=== PATIENT | female | born 1990 | race Caucasian/White ===

== ENCOUNTER 2018-05-09 09:02 | Emergency (ER) | payer MEDICAID, SELFPAY ==
[2018-05-09 09:05] VITALS: PULSE 90; RESP 16; TEMP 36.4; O2SAT 99
[2018-05-09 09:11] VITALS: BP 102/67
[2018-05-09 10:03] VITALS: PULSE 90; RESP 18; TEMP 36.4; O2SAT 96
--- NOTE | 2018-05-09 10:34 | ED.GENADUL_ITS ---
Discharge Plan Disposition Patient Disposition: HOME Condition: Stable Discharge Details Chief Complaint: RespSymp Clinical Impression: Influenza Primary Care Provider: Angel Lyman ED Provider: Ozzie Hernandez Home Meds and New Rx's Prescriptions: New benzonatate 200 mg capsule 200 mg PO TID PRN (Reason: cough) Qty: 30 RF: 0 oseltamivir [Tamiflu] 75 mg capsule 75 mg PO BID 5 Days Qty: 10 RF: 0 Continued medroxyprogesterone [Depo-Provera] 150 mg/mL syringe 150 mg IM .q 10wks Qty: 1 RF: 3 hydroxychloroquine [Plaquenil] 200 MG tablet 200 mg PO DAILY RF: 0 Midol Complete 1 EACH tablet 1 ea PO DAILY RF: 0 Discharge Instructions Instructions: Influenza (ED) Additional Instructions: Continue to stay well-hydrated and get plenty of rest during illness. You may use [id number] acetaminophen or Motrin as needed for body aches/fever chills. Otherwise take Tamiflu as prescribed and until fully completed and return immediately to the emergency department for any new or significant wor sening of symptoms. Follow-up with your primary care provider if not improving over the next week. Stand Alone Forms: Work Release Referrals: Angel Lyman [Primary Care Provider] - (As needed for reassessment) Medical Decision Making Patient presenting to the emergency department for chief complaint of flulike illness. Patient states that she has been around other family members that have recently been diagnosed with the flu. She states that symptoms started 48 hours ago and patient had significant fever and chills which she treated with Tylenol. Patient is now presenting to the emergency department for evaluation. she has not had any medications today. Patient has stable vital signs and is afebrile and otherwise vital signs within normal limits, nontoxic in appearance but patient does appear ill.. Physical exam is consistent with flu like illness. Patient has no signs of meningitis, clear lung sounds, and otherwise benign exam. Mother does have history of lupus and is on Plaquenil so given this I did discuss with mother recommendation for treatment with Tamiflu given that she has had symptoms for 48 hours or less. At this time we deferred testing given recent exposure to positive family members with similar symptoms. She was also prescribed Tessalon Perles for cough suppressant. She was encouraged to return for any new or significant worsening of symptoms otherwise to follow-up with primary care if not showing signs of improvement after a week of illness. After discussion of diagnosis and plan of care she has no further needs, questions, or concerns and states clear understanding to return to the emergency department for any worsening symptoms. HPI General Mode of arrival: ambulatory . Date/Time Provider Initiated Documentation: 05/09/18 10:01 . Limitations to Documentation: no limitations . Information obtained by: patient and RN notes reviewed . History of Present Illness 27 year old F presents to the emergency department with the chief complaint of Flu like illness, described as moderate, with intensity rated at 10. Quality is described as aching (Generalized body), Patient reports no radiation. Patient started experiencing this day(s) (2) and it has been constant. No relieving factors improve symptom(s), No exacerbating factors reported . Patient did receive the following treatments prior to arrival, none Related Data Home Medications Medication Instructions Recorded Confirmed hydroxychloroquine [Plaquenil] 200 mg PO DAILY tab-cap 08/04/16 05/09/18 Midol Complete 1 ea PO DAILY 05/22/17 05/09/18 medroxyprogesterone 150 mg/mL 150 mg IM .q 10wks #1 vial 03/08/18 05/09/18 intramuscular syringe benzonatate 200 mg PO TID PRN #30 cap 05/09/18 oseltamivir [Tamiflu] 75 mg PO BID 5 Days #10 [facility] 05/09/18 Previous Rx's Medication Instructions Recorded medroxyprogesterone 150 mg/mL 150 mg IM .q 10wks #1 vial 03/08/18 intramuscular syringe benzonatate 200 mg PO TID PRN #30 cap 05/09/18 oseltamivir [Tamiflu] 75 mg PO BID 5 Days #10 [facility] 05/09/18 Allergies Allergy/AdvReac Type Severity Reaction Status Date / Time Clear Adhesive Bandage AdvReac Intermediate Itchy skin Uncoded 05/09/18 09:11 - rash - feels like a burn General Stated Complaint: RespSymp MING: 4 Review of Systems Constitutional Reports body ache(s), Reports chills, Reports fever(s), Reports headache(s) and Reports malaise Eyes Denies eye discharge ENT Denies otalgia, Reports headache(s), Reports nasal congestion, Reports nasal discharge, Denies neck pain, Reports sinus pressure and Denies throat swelling Cardiovascular Denies chest pain and Denies dyspnea Respiratory Reports chest congestion, Reports cough, Reports pain with cough and Denies dyspnea Gastrointestinal Denies abdominal pain, Denies diarrhea, Denies nausea and Denies vomiting Musculoskeletal Denies joint swelling and Denies neck pain Integumentary/Breasts Denies rash Neurologic Reports headache(s) Allergic/Immunologic Denies throat swelling [facility] Medical History Lupus (Chronic) History of varicella Migraine with aura On Depo-Provera for contraception Pelvic pain Surgical History section Tonsillectomy and adenoidectomy Social History Smoking/Tobacco Use Status: Former Tobacco Use Exam Const General: cooperative, comfortable, no acute distress and ill appearing acutely (mild, non toxic) Nutritional Appearance: average body habitus Orientation: alert and awake [facility] Head: normal to inspection and normocephalic Ears: hearing grossly normal bilaterally, external ears normal and TM's normal bilaterally General nose exam: external nose normal, nares normal and no nasal discharge Face and sinus: normal facial exam and no erythema Mouth: oral mucosae normal, lip normal, tongue normal, no drooling, no muffled voice and no trismus Throat: posterior oropharynx normal, tonsils normal and uvula midline Neck Neck: normal visual inspection, full ROM, no lymphadenopathy, no meningeal signs, trachea midline and supple Resp Effort & Inspection: normal respiratory effort, able to speak in complete sentences and cough Quality of cough: dry Auscultation: clear to auscultation bilaterally Cardio Rate: regular rate Rhythm: regular rhythm Heart Sounds: S1 normal, S2 normal, normal S1 and S2, no click, no gallops, no murmurs and no rubs Skin General skin exam: no rashes or lesions noted and dry skin (warm) Neuro General: alert, awake, oriented x3, gait normal and moves all extremities Cognition: normal cognition Speech: speech normal Course Vital Signs Temperature 36.4 C L 05/09/18 09:05 Pulse 90 05/09/18 09:05 Respiratory Rate 16 05/09/18 09:05 Pulse Oximetry 99 05/09/18 09:05 Temperature 36.4 C L 05/09/18 10:03 Temperature Source Skin 05/09/18 10:03 Pulse 90 05/09/18 10:03 Respiratory Rate 18 05/09/18 10:03 Respiratory Effort 05/09/18 09:15 Blood Pressure 102/67 05/09/18 09:11 Pulse Oximetry 96 05/09/18 10:03 Oxygen Delivery Method Room Air 05/09/18 10:03 Oxygen Flow Rate 0 05/09/18 10:03 Pain Level 10 05/09/18 10:03
--- NOTE | 2018-05-09 10:44 | NUR.NOTE ---
patient and mother received discharge and follow up instruction per MD order Nursing Note:
== END 2018-05-09 11:29 | disposition home or self-care (01) ==
PROVIDERS: Emergency Provider Nurse Practitioner Family; PCP Family Medicine
DX: J11.1 Influenza due to unidentified influenza virus with other respiratory manifestations (principal)
CPT/HCPCS: 99283

== ENCOUNTER 2018-06-13 12:44 | Emergency (ER) | payer MEDICAID, SELFPAY ==
[2018-06-13 12:47] VITALS: BP 117/67; PULSE 94; RESP 16; TEMP 36.6; O2SAT 99
--- NOTE | 2018-06-13 13:05 | ED.GENADUL_ITS ---
Discharge Plan Disposition Patient Disposition: HOME Condition: Stable Discharge Details Chief Complaint: RespSymp Clinical Impression: URI (upper respiratory infection) Primary Care Provider: Angel Lyman ED Provider: Ozzie Hernandez Home Meds and New Rx's Prescriptions: New benzonatate 200 mg capsule 200 mg PO TID PRN (Reason: cough) Qty: 30 RF: 0 Continued medroxyprogesterone [Depo-Provera] 150 mg/mL syringe 150 mg IM .q 10wks Qty: 1 RF: 3 hydroxychloroquine [Plaquenil] 200 MG tablet 200 mg PO DAILY RF: 0 Midol Complete 1 EACH tablet 1 ea PO DAILY RF: 0 Discharge Instructions Instructions: Upper Respiratory Infection (ED) Additional Instructions: During illness please stay well-hydrated and get plenty of rest. Take medication as prescribed and you may also use [id number] appropriate cough and cold medication. Feel free to return for any new or significant worsening symptoms otherwise follow-up with your primary care provider for reassessment if not improving over the next week. Stand Alone Forms: Work Release Referrals: Angel Lyman [Primary Care Provider] - (as needed for reassessment) Medical Decision Making Patient presenting the emergency department for chief complaint of cough, nasal congestion, and headache. Patient states that she started last night with a mild cough but cough has progressed to dry and harsh causing headache, protests of emesis, and sinus pressure. She does state mild sore throat associated with this. She denies any fever, nuchal rigidity, rash or other symptoms. Physical exam shows significant nasal congestion, posterior oropharynx erythema but no exudates, no lymphadenopathy, no meningeal signs, clear lung sounds. Concern for upper respiratory tract infection which may include influenza. Plan to check influenza otherwise patient is stable, non-hypoxic, not tachycardic, and afebrile at this time. At this time doubt pneumonia, meningitis, retropharyngeal or peritonsillar abscess. Reviewed results of influenza which is negative at this time. Patient prescribed Tessalon Perles, and recommended [id number] cough and cold medications and to return for new or significant worsening symptoms or see [facility] provider if not improving. After discussion of diagnosis and plan of care patient is no further needs, questions, or concerns and states clear understanding to return to the emergency department for any worsening symptoms. HPI General Mode of arrival: ambulatory . Date/Time Provider Initiated Documentation: 06/13/18 13:02 . Limitations to Documentation: no limitations . Information obtained by: patient . History of Present Illness 27 year old F presents to the emergency department with the chief complaint of cold symptoms, described as mild and moderate, with intensity rated at 8. Quality is described as aching, and is localized to the head. Patient started experiencing this day(s) (1) and it has been constant. No relieving factors improve symptom(s), No exacerbating factors reported . Patient did receive the following treatments prior to arrival, none Related Data Home Medications Medication Instructions Recorded Confirmed hydroxychloroquine [Plaquenil] 200 mg PO DAILY tab-cap 08/04/16 06/13/18 Midol Complete 1 ea PO DAILY 05/22/17 06/13/18 medroxyprogesterone 150 mg/mL 150 mg IM .q 10wks #1 vial 03/08/18 06/13/18 intramuscular syringe benzonatate 200 mg PO TID PRN #30 cap 06/13/18 Previous Rx's Medication Instructions Recorded medroxyprogesterone 150 mg/mL 150 mg IM .q 10wks #1 vial 03/08/18 intramuscular syringe benzonatate 200 mg PO TID PRN #30 cap 06/13/18 Allergies Allergy/AdvReac Type Severity Reaction Status Date / Time Clear Adhesive Bandage AdvReac Intermediate Itchy skin Uncoded 05/17/18 15:37 - rash - feels like a burn General Stated Complaint: RespSymp MING: 3 Review of Systems Constitutional Reports body ache(s), Reports chills, Reports fever(s), Reports headache(s) and Reports malaise Eyes Denies eye discharge ENT Reports as per HPI, Denies ear discharge, Denies otalgia, Reports headache(s), Reports nasal congestion, Reports nasal discharge, Denies neck pain, Reports sinus pain, Reports sinus pressure, Reports sore throat and Denies throat swelling Cardiovascular Denies chest pain and Denies dyspnea Respiratory Reports cough and Denies dyspnea Gastrointestinal Reports vomiting (after coughing ) Musculoskeletal Denies joint swelling and Denies neck pain Integumentary/Breasts Denies rash Neurologic Reports headache(s) Allergic/Immunologic Denies throat swelling [facility] Medical History Migraine with aura (Chronic) On Depo-Provera for contraception (Acute) Contraception (Acute 06/14/15) Lupus (Chronic) History of varicella (Resolved) Pelvic pain (Resolved) Surgical History section Tonsillectomy and adenoidectomy Social History Smoking/Tobacco Use Status: Former Tobacco Use Exam Const General: cooperative, comfortable and no acute distress Orientation: alert and awake [facility] Head: normal to inspection, normocephalic and atraumatic Ears: hearing grossly normal bilaterally and TM's normal bilaterally General nose exam: external nose normal Face and sinus: normal facial exam, sinuses nontender and no erythema Mouth: oral mucosae normal, lip normal, tongue normal, no drooling, no muffled voice and no trismus Throat: tonsils normal, uvula midline and posterior oropharynx abnormal erythema (mild) Neck Neck: normal visual inspection, full ROM, no lymphadenopathy, no meningeal signs, trachea midline and supple Resp Effort & Inspection: normal respiratory effort, able to speak in complete sentences and cough Quality of cough: dry Auscultation: clear to auscultation bilaterally Cardio Rate: regular rate Rhythm: regular rhythm Heart Sounds: S1 normal, S2 normal, normal S1 and S2, no click, no gallops, no murmurs and no rubs Skin General skin exam: no rashes or lesions noted and dry skin (warm) Neuro General: alert, awake, oriented x3, gait normal and moves all extremities Cognition: normal cognition Speech: speech normal Course Vital Signs Temperature 36.6 C 06/13/18 12:47 Pulse 94 H 06/13/18 12:47 Respiratory Rate 16 06/13/18 12:47 Blood Pressure 117/67 06/13/18 12:47 Pulse Oximetry 99 06/13/18 12:47 Temperature 36.6 C 06/13/18 12:47 Temperature Source Skin 06/13/18 12:47 Pulse 94 H 06/13/18 12:47 Respiratory Rate 16 06/13/18 12:47 Respiratory Effort Non-Labored 06/13/18 12:52 Respiratory Depth Normal 06/13/18 12:52 Blood Pressure 117/67 06/13/18 12:47 Blood Pressure Position Sitting 06/13/18 12:47 Pulse Oximetry 99 06/13/18 12:47 Oxygen Delivery Method Room Air 06/13/18 12:47 Oxygen Flow Rate 0 06/13/18 12:47
== END 2018-06-13 13:55 | disposition home or self-care (01) ==
PROVIDERS: Emergency Provider Nurse Practitioner Family; PCP Family Medicine
DX: J06.9 Acute upper respiratory infection, unspecified (principal); Z87.891 Personal history of nicotine dependence
CPT/HCPCS: 87449; 99283

== ENCOUNTER 2018-06-17 16:09 | Outpatient (REF) | payer MEDICAID, SELFPAY ==
--- NOTE | 2018-06-17 16:00 | PAPFT_PTH ---
PATIENT: Kaylyn Gibson LOC: [facility] U#:[id number] AGE/SX: 27/F ROOM: RE06/17/[address]: PRACHI Almeida : 1990 BED: DIS: 06/17/2018 SPEC #: [id number] RECD: 06/17/18 18:16 STATUS: ADRIAN MUÑOZ #: [id number] ROBERT: 06/17/18 16:[address]: Daja Mcnamara DEPT: [facility] Cytology RECD BY: Loida Miranda ENTERED: 06/17/18 18:16 SP TYPE: PAPFT OTHR DR: Angel Lyman Tissues: 1 - CX/ENDOCX FOR PAP SMEARS Procedures: PAP THIN PREP/[facility] Screening Comments: [id number]
== END 2018-06-17 16:29 ==
LOC: LBN 16:09
PROVIDERS: PCP Family Medicine; Visit Provider Nurse Practitioner Family
DX: Z12.4 Encounter for screening for malignant neoplasm of cervix (principal)
CPT/HCPCS: 88142

== ENCOUNTER 2019-02-11 00:47 | Outpatient (CLI) | payer MEDICAID, SELFPAY ==
--- NOTE | 2019-02-11 14:22 | DI.US_ITS ---
APPROVED REPORT EXAM: Comprehensive 2D, Doppler, and color-flow Echocardiogram Indications: syncope, R55. systemic lupus erythematosus M32.9 28 yo. female with syncopal episodes, EKG with low voltage. assess for pericardial effusion or other abnormality Left Ventricle The left ventricle is normal size. The left ventricular systolic function is normal. The left ventric ular ejection fraction is within the normal range. There is normal left ventricular wall thickness. T here is normal LV segmental wall motion. The left ventricular diastolic function is normal. The Left Ventricular Ejection Fraction is 60-65% Right Ventricle The right ventricle is normal size. The right ventricular systolic function is normal. Atria The left atrium size is normal. The right atrium size is normal. Aortic Valve The aortic valve is normal in structure. There is no aortic valvular stenosis. No aortic regurgitatio n is present. Mitral Valve The mitral valve is normal in structure. Trace to mild mitral regurgitation. Tricuspid Valve The tricuspid valve is normal in structure. Mild tricuspid regurgitation. Pulmonic Valve The pulmonary valve is normal in structure. Trace to mild pulmonic regurgitation. Great Vessels JulyThe aortic root is normal in size. IVC is normal in size and collapses >50% with inspiration. Pericardium There is no pericardial effusion. 2D Dimensions IVSd 1.0 cm F: 0.6-1.0 LA Volume Index A2C 17.0 mL/m2 PWd 0.9 cm F: 0.6 - 1.0 LA Volume Index A4C 23.0 mL/m2 LVDd 4.9 cm F: 3.9 - 5.3 LVDs 3.2 cm F: 2.2 - 3.5 Aortic Root 2.9 cm F: 2.7 - 3.3 Left Atrium 2.7 cm F: 2.7 - 3.8 LVOT 2.0 cm (M/F) 1.5-2.5 LVEF (Oneil's) 57.6 % F: 54 - 74 LV Volume 87.3 mL F: 46 - 106 LV Volume Index 53.5 mL/m2 F: 29 - 61 FS 34.0 % LV Diastology E/A Ratio 1.8 MED E' 0.1 (<0.07 m/s) LV E/e MED 7.1 (>14) LAT E' 0.2 (<0.1 m/s) LV E/e LAT 5.3 (>14) Aortic Valve LVOT Peak Desean. 1.0 m/s LVOT Peak Gr. 4.4 mmHg LVOT Mean Gr. 2.7 mmHg LVOT VTI 0.2 m AO VTI 0.3 (0.18-0.25 m) JOLIE (VTI) 1.6 (2.5-4.5 cm2) Mitral Valve MV E Max Desean. 0.9 (0.4-1.3 m/s) MV A Velocity 0.5 (0.4-1.3 m/s) E/A Ratio 2.1 MV Decel. Time 172.2 (160-240 msec) MV PHT 49.9 msec MVA PHT 4.4 cm2 Tricuspid Valve TR P. Velocity 2.5 m/s TR P. Gradient 24.4 mmHg Conclusion The Left Ventricular Ejection Fraction is 60-65%, without wall motion abnormalities The left ventricular diastolic function is normal. The right ventricle shows normal size and function. Both atria are normal size The aortic valve is normal in structure without stenosis. The mitral valve is normal in structure with trace regurgitation The tricuspid valve is normal in structure with mild regurgitation The aortic root is normal in size. There is no pericardial effusion. This represents a normal echocardiogram
== END 2019-02-11 01:07 ==
PROVIDERS: PCP Family Medicine; Visit Provider Family Medicine
DX: R55 Syncope and collapse (principal); M32.9 Systemic lupus erythematosus, unspecified; I34.0 Nonrheumatic mitral (valve) insufficiency
CPT/HCPCS: 93306

== ENCOUNTER 2019-03-07 00:39 | Outpatient (CLI) | payer MEDICAID, SELFPAY ==
--- NOTE | 2019-03-07 15:20 | DI.MRI_ITS ---
EXAM: MR BRAIN WO CLINICAL HISTORY: RECURRENT SYNCOPAL EPISODES WITH ? SEIZURE, R55 SYNCOPE AND COLLAPSE, G25.9, UNSPE CIFIED EXTRAPYRAMIDAL AND MOVEMENT DISORDER, H53.9, VISUAL DISTURBANCE. TECHNIQUE: Multiplanar multisequence MRI was performed. MR examination of brain was performed accor ding to the usual protocol. COMPARISON: No exams were available for comparison FINDINGS: Ventricular system is normal in appearance. The orbital and temporal bone structures appear intact. Diffusion-weighted imaging within normal limits. Susceptibility weighted imaging within normal limi ts. There is normal flow in the tetlin of [place] vasculature. There is questionable faint focus of abnormal signal seen on T2 weighted and FLAIR imaging, which pro bably lies in the external capsule on the left. This is a nonspecific finding. However, given the h istory of seizures, additional evaluation with contrast-enhanced MRI and additional coronal imaging i s suggested to rule out inflammatory, neoplastic, or demyelinating process.
== END 2019-03-07 00:59 ==
PROVIDERS: PCP Family Medicine; Visit Provider Nurse Practitioner Adult Health
DX: R55 Syncope and collapse (principal); G25.9 Extrapyramidal and movement disorder, unspecified; H53.9 Unspecified visual disturbance; Z86.69 Personal history of other diseases of the nervous system and sense organs
CPT/HCPCS: 70551

== ENCOUNTER 2019-03-20 03:02 | Outpatient (CLI) | payer MEDICAID, SELFPAY ==
[2019-03-20] MEDS: Normal Saline Flush 10 ML SYR IVP (13:42)
[2019-03-20] MEDS: Gadoterate meglumine 20 ML VIAL 11 ML IVP (13:43)
--- NOTE | 2019-03-20 14:00 | DI.MRI_ITS ---
EXAM: MR BRAIN W CLINICAL HISTORY: abnormal brain MRI, R90.89, please do coronals. TECHNIQUE: Multiplanar multisequence MRI was performed. COMPARISON: MR BRAIN WO from 03/07/2019 FINDINGS: Today's examination was obtained to evaluate questionable focal area of abnormal signal seen on T2 we ighted and FLAIR imaging on recent MRI of March 07, 2019 on the left. This is again seen on today' s examination and is confirmed to lie in the deep white matter adjacent to the insular cortex on the left just above the extreme capsule. No other signal abnormality identified in the brain. Post cont rast imaging shows no evidence of enhancement. Very subtle area of decreased signal noted on the T1 post contrast images. This was probably present on the initial scan as well. No other enhancing les ion seen in the brain. IMPRESSION: Nonspecific T2 high-signal focus in deep white matter adjacent to insular cortex on the left. No alexi dence of enhancement at this site or elsewhere in the brain. The findings may represent an old insul t. Possibility of very early demyelinating or inflammatory process not excluded. Follow-up brain MR I recommended in 6 months.
== END 2019-03-20 03:22 ==
PROVIDERS: PCP Family Medicine; Visit Provider Nurse Practitioner Adult Health
DX: R90.82 White matter disease, unspecified (principal); R94.02 Abnormal brain scan
CPT/HCPCS: 70552

== ENCOUNTER 2019-05-05 16:42 | Outpatient (REF) | payer MEDICAID, SELFPAY ==
[2019-05-05 19:29] LABS: C-Reactive Protein 0.05 mg/dL (0.0-0.3); TSH (W/Ref FT4) 0.87 uIU/mL (0.36-3.74)
== END 2019-05-05 17:02 ==
LOC: NCHCN 16:42
PROVIDERS: PCP Family Medicine; Visit Provider Family Medicine
DX: R94.6 Abnormal results of thyroid function studies (principal); M32.9 Systemic lupus erythematosus, unspecified
CPT/HCPCS: 84443; 86140

== ENCOUNTER 2019-07-10 09:08 | Emergency (ER) | payer MEDICAID, SELFPAY ==
[2019-07-10 09:16] VITALS: BP 110/56; PULSE 86; RESP 16; TEMP 36.8; O2SAT 99
--- NOTE | 2019-07-10 09:51 | ED.GENADUL_ITS ---
Discharge Plan Disposition Patient Disposition: HOME Condition: Stable Discharge Details Chief Complaint: RespSymp Clinical Impression: Pneumonia Primary Care Provider: Angel Lyman ED Provider: Willie Cabrales Home Meds and New Rx's Prescriptions: New doxycycline hyclate 100 mg capsule 100 mg PO BID 10 Days Qty: 20 RF: 0 Continued hydroxychloroquine [Plaquenil] 200 MG tablet 200 mg PO DAILY RF: 0 Midol Complete 1 EACH tablet 1 ea PO DAILY RF: 0 sertraline 100 mg tablet 200 mg PO DAILY RF: 0 Nexplanon 68 mg Implant 1 SUBDERMAL RF: 0 Discharge Instructions Instructions: Pneumonia (ED) Additional Instructions: Doxycycline as directed. [id number] medications as directed for symptomatic control. Please watch for new or worsening symptoms and return to the ER for any concerns. Stand Alone Forms: Work Release Medical Decision Making Patient presents with a febrile illness since Sunday, afebrile now. Lungs are clear to auscultation, she appears well, nontoxic. Will obtain chest x-ray to rule out pneumonia, rapid strep to rule out strep pharyngitis. Likely viral syndrome. Very well could have been a false negative flu swab on Sunday. Rapid strep negative. X-ray reveals left lower lobe pneumonia, will treat with doxycycline. Patient comfortable this plan. No additional questions or concerns Medical Records Medical records reviewed: Yes I reviewed the patient's medical records. Imaging Data Radiologic Study: Attestation: I personally reviewed and interpreted this imaging study as follows: Imaging: X-Ray (Left lower lobe infiltrate as read by me) Lab Data Lab results reviewed: Yes I reviewed the patient's lab results. Lab results narrative: 07/10/19 09:55 Tonsil - Not Specified Streptococcus Screen (OUMAR) - Pending Rapid strep negative, culture pending HPI General Mode of arrival: ambulatory . Date/Time Provider Initiated Documentation: 07/10/19 09:24 . Limitations to Documentation: no limitations . Information obtained by: patient . HPI Narrative: 28-year-old female history of lupus, migraines, presents with cough, slightly productive, fever, bilateral earache, sore throat, body aches that began on Sunday, worsened on Sunday. She was seen by her provider on Sunday, negative flu swab. She was instructed to use neb treatments and pufq-lll-[id number] medications. She reports that she really does not feel any better. She has vomited 1 time after a coughing episode but denies any other vomiting, abdominal pain, nausea. Does report general malaise. Denies any headache, chest pain, dysuria, diarrhea, skin rash. 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 Related Data Home Medications Medication Instructions Recorded Confirmed hydroxychloroquine [Plaquenil] 200 mg PO DAILY tab-cap 08/04/16 07/10/19 Midol Complete 1 ea PO DAILY 05/22/17 07/10/19 sertraline 100 mg tablet 200 mg PO DAILY tab 01/24/19 07/10/19 Nexplanon 1 SUBDERMAL 07/10/19 doxycycline hyclate 100 mg PO BID 10 Days #20 cap 07/10/19 Previous Rx's Medication Instructions Recorded doxycycline hyclate 100 mg PO BID 10 Days #20 cap 07/10/19 Allergies Allergy/AdvReac Type Severity Reaction Status Date / Time Clear Adhesive Bandage AdvReac Intermediate Itchy skin Uncoded 07/10/19 09:19 - rash - feels like a burn General Stated Complaint: RespSymp MING: 4 Review of Systems Constitutional Constitutional: Denies chills, Reports fatigue, Reports fever(s) and Reports headache(s) (History of migraines, no symptoms now) Eyes Eyes: Denies eye discharge ENT Ears, Nose, Mouth, and Throat: Reports headache(s) (History of migraines, no symptoms now), Reports hoarseness and Reports sore throat Cardiovascular Cardiovascular: Denies chest pain and Denies dyspnea Respiratory Respiratory: Reports cough and Denies dyspnea Gastrointestinal Gastrointestinal: Denies abdominal pain, Denies nausea and Reports vomiting Genitourinary Genitourinary: Denies dysuria Musculoskeletal Musculoskeletal: Reports myalgias Integumentary/Breasts Skin/Breast: Denies rash Neurologic Neurologic: Reports headache(s) (History of migraines, no symptoms now) Endocrine Endocrine: Reports fatigue [facility] Medical History Abnormal results of thyroid function studies (Acute) Acute stress reaction (Acute) BASSEM positive (Acute) Contraception (Acute 06/14/15) Depo Provera since 2015. CTS (carpal tunnel syndrome) (Acute) History of varicella (Resolved) 1994 Iron deficiency (Acute) Lupus (Chronic) Major depression (Acute) Migraine headache (Chronic) Migraine with aura (Chronic) On Depo-Provera for contraception (Acute) since RC/S 05/2015. Pain, eye, right (Acute) Panic disorder (Acute) Pelvic pain (Resolved) Nl CT of abd and pelvis. 2nd opinion at [facility] [place] Doctor Of Naturopathic Medicine Dept discouraged pt from having hysterectomy. Pelvic pain in female (Acute) Spina bifida occulta (Acute) Syncope (Chronic) Systemic lupus erythematosus (Chronic) Surgical History section 1. C/S 2. 05/31/15 elective repeat. F. [id number]. Tonsillectomy and adenoidectomy Social History Smoking/Tobacco Use Status: Current every day Tobacco Type: cigarettes Alcohol Intake: never Drug use: Never Do you feel safe in your relationship?: Yes Exam Const General: cooperative, healthy appearing, comfortable and no acute distress Orientation: alert and awake [facility] Head: normal to inspection, normocephalic and atraumatic Ears: external ears normal, TM's normal bilaterally and EAC's normal Mouth: moist mucous membranes Throat: posterior oropharynx normal Eyes Conjunctivae: conjunctivae normal Neck Neck: normal visual inspection, full ROM, trachea midline and supple Lymphatic: lymphadenopathy (Mild, anterior, posterior cervical, shotty) Resp Effort & Inspection: normal respiratory effort, able to speak in complete sentences and cough Quality of cough: dry (Mild) Auscultation: clear to auscultation bilaterally Cardio Rate: regular rate Rhythm: regular rhythm Skin General skin exam: no rashes or lesions noted Neuro General: alert, awake, moves all extremities and no focal motor deficits Sensory Exam: no sensory deficits noted Extrem General: normal to inspection Psych Appearance: grossly normal Mental Status: mental status grossly normal Course Vital Signs Vital signs: Vital Signs Temperature 36.8 C 07/10/19 09:16 Pulse 86 07/10/19 09:16 Respiratory Rate 16 07/10/19 09:16 Blood Pressure 110/56 L 07/10/19 09:16 Pulse Oximetry 99 07/10/19 09:16 Temperature 36.8 C 07/10/19 09:16 Temperature Source Skin 07/10/19 09:16 Pulse 86 07/10/19 09:16 Respiratory Rate 16 07/10/19 09:16 Respiratory Effort Non-Labored 07/10/19 09:26 Blood Pressure 110/56 L 07/10/19 09:16 Blood Pressure Position Sitting 07/10/19 09:16 Pulse Oximetry 99 07/10/19 09:16 Oxygen Delivery Method Room Air 07/10/19 09:16 Oxygen Flow Rate 0 07/10/19 09:16 Pain Level 9 07/10/19 09:16
--- NOTE | 2019-07-10 10:06 | DI.RAD_ITS ---
EXAM: XR CHEST 2V PA LATERAL INDICATION: cough/fever, neg flu. COMPARISON: No exams were available for comparison TECHNIQUE: 2D digital imaging was performed. FINDINGS: Cardiac and mediastinal contours have a normal appearance. There is a patchy infiltrate seen in the left lower lobe, above the diaphragm. There is also probable in infiltrate in the lingula. No eff usions are seen. The right appears clear. No pneumothorax or bony abnormality is seen. IMPRESSION: Left lower lobe and lingular infiltrates. DATA REPOSITORY: RADIATION DOSE DELIVERED:
[2019-07-10 10:43] VITALS: BP 99/55; PULSE 86; RESP 15; O2SAT 98
== END 2019-07-10 10:44 | disposition home or self-care (01) ==
PROVIDERS: Emergency Provider Physician Assistant; PCP Family Medicine
DX: R05 Cough (principal); R50.9 Fever, unspecified; J18.9 Pneumonia, unspecified organism; F17.210 Nicotine dependence, cigarettes, uncomplicated
CPT/HCPCS: 87880; 99283; 71046; 87081; 99284

== ENCOUNTER 2019-09-18 01:38 | Outpatient (CLI) | payer MEDICAID, SELFPAY ==
--- NOTE | 2019-09-18 08:30 | DI.MRI_ITS ---
EXAM: MR BRAIN WO/W CLINICAL HISTORY: 6 month monitoring for hx abnormal brain imaging. TECHNIQUE: Multiplanar multisequence MRI of the brain was performed. CONTRAST MATERIAL: IV Contrast: ML of Dotarem contrast administered. COMPARISON: MR MR BRAIN WO from 03/07/2019 MR MR BRAIN W from 03/20/2019 FINDINGS: VENTRICLES AND EXTRA AXIAL SPACES: Normal in size and morphology for the patient's age. HEMORRHAGE: None. CEREBRAL PARENCHYMA: There is normal zimmerman-white matter differentiation. There has been no change in the 5 millimeter high-signal focus in the white matter adjacent to the left insular cortex. Again th is shows no enhancement. No new lesions are identified. There is no restricted diffusion. No space -occupying lesion identified. MIDLINE SHIFT: None. BRAINSTEM/CEREBELLUM: Normal. CALVARIUM: Normal. ENHANCEMENT: No suspicious enhancement identified. VISUALIZED PARANASAL SINUSES/MASTOIDS: Clear. IMPRESSION: Stable small high signal focus in the white matter adjacent to the left insular cortex. The findings could be secondary to a remote vascular insult. No new abnormalities are seen.. DATA REPOSITORY:
[2019-09-18] MEDS: Normal Saline Flush 10 ML SYR IVP (14:35)
[2019-09-18] MEDS: Gadoterate meglumine 20 ML VIAL 12 ML IVP (14:36)
== END 2019-09-18 01:58 ==
PROVIDERS: PCP Family Medicine; Visit Provider Nurse Practitioner Adult Health
DX: R93.0 Abnormal findings on diagnostic imaging of skull and head, not elsewhere classified (principal); R90.82 White matter disease, unspecified
CPT/HCPCS: 70553

== ENCOUNTER 2019-11-27 13:35 | Outpatient (REF) | payer MEDICAID, SELFPAY ==
[2019-12-01 14:53] LABS: Chlamydia Result Negative (Negative); GC Result Negative (Negative)
== END 2019-11-27 13:55 ==
LOC: NCHCN 13:35
PROVIDERS: PCP Family Medicine; Visit Provider Family Medicine
DX: Z30.9 Encounter for contraceptive management, unspecified (principal); Z11.3 Encounter for screening for infections with a predominantly sexual mode of transmission
CPT/HCPCS: 87491; 87591

== ENCOUNTER 2020-04-27 20:44 | Outpatient (REF) | payer MEDICAID, SELFPAY ==
[2020-04-27 18:18] LABS: Abs Immature Grans 0.02 10^3/uL (0.0-0.06); Absolute Basophil Count 0.05 10^3/uL (0.0-0.2); Absolute Eosinophil Count 0.06 10^3/uL (0.0-0.7); Absolute Lymphocyte Count 2.33 10^3/uL (1.2-3.4); Absolute Monocyte Count 0.51 10^3/uL (0.1-0.8); Absolute Neutrophil Count 3.84 10^3/uL (1.2-6.7); Basophils % 0.7; Eosinophils % 0.9; HCT 36.3 % (36.0-46.0); HGB 12.1 g/dL (11.2-15.7); Immature Grans % 0.3; Lymphocytes % 34.2; MCH 32.5 pg (27.0-33.0); MCHC 33.3 % (32.0-36.0); MCV 97.6 fL (80-95); MPV 10.8 fL (8.0-11.0); Monocytes % 7.5; Neutrophils % 56.4; Nucleated RBC 0 %; Platelet Count 259 10^3/uL (130-400); RBC 3.72 10^6/uL (3.93-5.22); RDW 11.9 % (11.7-14.6); RDW-SD 42.5 fL; WBC 6.81 10^3/uL (4.4-10.8)
[2020-04-27 18:26] LABS: ALT 16 U/L (14-59); AST 15 U/L (15-37); Albumin 4.3 g/dL (3.4-5.0); Alkaline Phosphatase 73 U/L (46-116); Anion Gap 9.4 mmol/L (3-11); BUN 10 mg/dL (7-18); Bilirubin, Total 0.2 mg/dL (0.2-1.0); CO2 27.6 mmol/L (21.0-32.0); CREATININE 0.78 mg/dL (0.55-1.02); Calcium 9.1 mg/dL (8.5-10.1); Chloride 104 mmol/L (98-107); Glucose 105 mg/dL (74-106); Potassium 3.7 mmol/L (3.5-5.1); Sodium 141 mmol/L (136-145); Total Protein 6.9 g/dL (6.4-8.2)
== END 2020-04-27 21:04 ==
LOC: NCHCN 20:44
PROVIDERS: PCP Family Medicine; Visit Provider Family Medicine
DX: B35.1 Tinea unguium (principal)
CPT/HCPCS: 80053; 85025

== ENCOUNTER 2020-10-17 12:23 | Emergency (ER) | payer MEDICAID, SELFPAY ==
[2020-10-17 12:31] VITALS: BP 105/71; PULSE 92; RESP 20; TEMP 36.4; O2SAT 98
--- NOTE | 2020-10-17 12:42 | ED.GENADUL_ITS ---
Discharge Plan Disposition Patient Disposition: HOME Condition: Good Discharge Details Clinical Impression: Abrasion hand, Laceration of hand Primary Care Provider: Angel Lyman ED Provider: Jennifer Esparza Home Meds and New Rx's Prescriptions: Continued hydroxychloroquine [Plaquenil] 200 MG tablet 200 mg PO DAILY RF: 0 Midol Complete 1 EACH tablet 1 ea PO DAILY RF: 0 Mirena 20 mcg/24 hours (6 yrs) 52 mg Intrauterine Device 1 device INTRAUTERINE ONCE RF: 0 venlafaxine 75 mg capsule,extended release 24hr 225 mg PO DAILY RF: 0 Discharge Instructions Instructions: Laceration (ED) Additional Instructions: There is no evidence of fracture on your x-ray. There is no evidence that you have disrupted any ligaments. However, you have multiple abrasions and one laceration requiring suture closure. Please monitor wound for signs infection including redness, warmth, drainage, increased pain, fever/chills. If you develop these other new/worsening symptoms please seek care urgently once again. Otherwise, please return in 10 days for suture removal. Referrals: Angel Lyman [Primary Care Provider] - Discharge Data Discharge Date/Time-TO BE ENTERED AT DEPARTURE: 10/17/20 14:10 Medical Decision Making Patient is a pleasant 29-year-old [id number] female presenting today with chief complaint of right hand pain. She reports a prior to arrival she was in the bathroom when she tripped over a cord and fell putting her right hand through a glass window. Suffered multiple abrasions and one longer laceration. Denies any numbness or tingling. Denies other injury the time of the incident. Last tetanus was in 2014. On exam, patient appears nontoxic. Hemodynamically stable. Patient has multiple abrasions and a laceration that will require closure just proximal to the MCP joint of the fourth digit. She has good extension against resistance of all the digits. She is able to touch thumb and pinky. Axillary nerve function intact. No pain with palpation of the wrist. Plan to obtain imaging to evaluate for any possible bony abnormality. Will give Tylenol and ibuprofen to help with discomfort. UPT negative. XR reviewed by radiologist: FINDINGS: Four views were obtained. No fracture is seen. Discussed findinsg witht eh patient. She and I discussed risks/benefits of closure of her wound. She voices understanding and wishes to proceed. Please see procedure note. Patient tolerated this well. Wounds were all cleansed, explored to base in a bloodless field with no FB or debris noted. Deep structures intact. The small laceration radial to the one requiring suture closure was cleansed and closed with thin later of adhesive. We discussed care of the sutrues and adhesive at length. We discussed wound care in general. Dressing applied. Middle and ring finger ivon taped to help immobilize the lacerations. Return precautions discussed. She will return for suture removal in 10 days. All of her questions and concerns were addressed, she is in agreement with this plan. HPI General Mode of arrival: ambulatory . Date/Time Provider Initiated Documentation: 10/17/20 12:41 . Limitations to Documentation: no limitations . Information obtained by: patient and RN notes reviewed . History of Present Illness 29 year old F presents to the emergency department with the chief complaint of right hand injury, described as moderate, with intensity rated at 7. Quality is described as aching, and is localized to the right and upper extremity. Patient reports no radiation. Patient started experiencing this minute(s) and it has been constant. Immobilization improves symptom(s), Patient notes no other symptoms.. Patient did receive the following treatments prior to arrival, none Related Data Home Medications Medication Instructions Recorded Confirmed hydroxychloroquine [Plaquenil] 200 mg PO DAILY tab-cap 08/04/16 10/17/20 Midol Complete 1 ea PO DAILY 05/22/17 10/17/20 Mirena 1 device INTRAUTERINE ONCE 10/17/20 10/17/20 venlafaxine 225 mg PO DAILY 10/17/20 10/17/20 Allergies Allergy/AdvReac Type Severity Reaction Status Date / Time ibuprofen AdvReac Intermediate Nausea Unverified 10/17/20 12:53 Clear Adhesive Bandage AdvReac Intermediate Itchy skin Uncoded 07/10/19 09:19 - rash - feels like a burn General Stated Complaint: Laceration MING: 4 Review of Systems Constitutional Constitutional: Reports as per HPI, Denies chills, Denies fever(s), Denies headache(s) and Denies weakness ENT Ears, Nose, Mouth, and Throat: Denies headache(s) Cardiovascular Cardiovascular: Reports as per HPI Respiratory Respiratory: Reports as per HPI and Denies cough Musculoskeletal Musculoskeletal: Reports as per HPI and Denies tingling Integumentary/Breasts Skin/Breast: Reports as per HPI, Denies rash and Denies wounds Neurologic Neurologic: Reports as per HPI, Denies headache(s), Denies tingling, Denies paresthesias and Denies weakness [facility] Medical History (Updated 10/17/20 @ 13:52 by YOVANNY Burris) Abnormal results of thyroid function studies Acute stress reaction BASSEM positive Contraception (06/14/15) Depo Provera since 2015. CTS (carpal tunnel syndrome) History of varicella 1994 Iron deficiency Lupus Major depression Migraine headache Migraine with aura On Depo-Provera for contraception since RC/S 05/2015. Pain, eye, right Panic disorder Pelvic pain Nl CT of abd and pelvis. 2nd opinion at [facility] [place] [employer] Dept discouraged pt from having hysterectomy. Pelvic pain in female Spina bifida occulta Syncope Systemic lupus erythematosus Surgical History section 1. C/S 2. 05/31/15 elective repeat. F. [id number]. Tonsillectomy and adenoidectomy Social History Smoking/Tobacco Use Status: Current every day Tobacco Type: cigarettes Smoking risk assessment performed?: Yes Alcohol Intake: never Drug use: Never Substance use type: does not use Do you feel safe at home: Yes Do you feel safe in your relationship?: Yes Exam Const General: cooperative, healthy appearing, comfortable, no acute distress, well developed and well groomed Nutritional Appearance: average body habitus and well nourished Orientation: alert and awake Resp Effort & Inspection: normal respiratory effort, able to speak in complete sentences and no respiratory distress Cardio Rate: regular rate Rhythm: regular rhythm Skin Trauma: abrasion and laceration Neuro General: patient alert and patient awake Cognition: normal cognition Speech: speech normal Gait: normal gait Motor: muscle tone normal throughout Sensory Exam: no sensory deficits noted Extrem Hand/finger images: 1. 1.6cm laceration into subQ tissue. No deep structure involvement. Able to extend fingers against resistance. No surrounding erythema, warmth, drainage. Senstaion intact. Brisk capillary refill. 2. 5mm curvilinear laceration. Psych Appearance: grossly normal and well kempt Mental Status: mental status grossly normal Speech and Movement: speech and movement normal Course Vital Signs Vital signs: Vital Signs Temperature 36.4 C L 10/17/20 12:31 Pulse 92 H 10/17/20 12:31 Respiratory Rate 20 10/17/20 12:31 Blood Pressure 105/71 10/17/20 12:31 Pulse Oximetry 98 10/17/20 12:31 Temperature 36.4 C L 10/17/20 12:31 Temperature Source Skin 10/17/20 12:31 Pulse 92 H 10/17/20 12:31 Respiratory Rate 20 10/17/20 12:31 Respiratory Effort 10/17/20 12:40 Blood Pressure 105/71 10/17/20 12:31 Blood Pressure Position Sitting 10/17/20 12:31 Pulse Oximetry 98 10/17/20 12:31 Oxygen Delivery Method Room Air 10/17/20 12:31 Oxygen Flow Rate 0 10/17/20 12:31 Pain Level 9 10/17/20 12:41 Procedures Laceration Laceration 1: Site: hand Side (If applicable): right Size (cm): 1.5 Description: linear Depth: simple, single layer Local Anesthetic: Lidocaine 1% Amount of anesthesia used (mL): 3 Pre-repair: wound explored, irrigated extensively and deep structures intact Skin layer closed with: nylon Size (cm): 5-0 Number of sutures: 2 Technique: simple, interrupted
--- NOTE | 2020-10-17 12:45 | DI.RAD_ITS ---
Exam(s) XR HAND RT COMPLETE EXAM: XR HAND RT COMPLETE CLINICAL HISTORY: fell through window TECHNIQUE: COMPARISON: No exams were available for comparison FINDINGS: Four views were obtained. No fracture is seen. IMPRESSION: RADIATION DOSE DELIVERED: Total DLP
[2020-10-17] MEDS: Acetaminophen 325 MG TAB 650 MG PO (12:52)
[2020-10-17] MEDS: Lidocaine/Epinephri/Tetracaine Topical Gel 3 ML (13:20)
[2020-10-17] MEDS: Lidocaine 1% Multi-Dose 20 ML VIAL IJ (13:20)
== END 2020-10-17 14:10 | disposition home or self-care (01) ==
PROVIDERS: Emergency Provider Physician Assistant; PCP Family Medicine
DX: S61.411A Laceration without foreign body of right hand, initial encounter (principal); W25.XXXA Contact with sharp glass, initial encounter
CPT/HCPCS: 12001; 81025; 99281; 73130; J3490

== ENCOUNTER 2021-02-04 02:54 | Outpatient (CLI) | payer MEDICAID, SELFPAY ==
[2021-02-04 15:36] LABS: Abs Immature Grans 0.01 10^3/uL (0.0-0.06); Absolute Basophil Count 0.04 10^3/uL (0.0-0.2); Absolute Eosinophil Count 0.03 10^3/uL (0.0-0.7); Absolute Lymphocyte Count 1.73 10^3/uL (1.2-3.4); Absolute Monocyte Count 0.28 10^3/uL (0.1-0.8); Absolute Neutrophil Count 3.52 10^3/uL (1.2-6.7); Basophils % 0.7; Eosinophils % 0.5; HCT 33.2 % (36.0-46.0); Immature Grans % 0.2; Lymphocytes % 30.8; MCH 32.4 pg (27.0-33.0); MCHC 33.1 % (32.0-36.0); MCV 97.9 fL (80-95); MPV 9.7 fL (8.0-11.0); Neutrophils % 62.8; Nucleated RBC 0 %; Platelet Count 195 10^3/uL (130-400); RBC 3.39 10^6/uL (3.93-5.22); RDW 12.2 % (11.7-14.6); WBC 5.61 10^3/uL (4.4-10.8)
[2021-02-04 15:37] LABS: ESR < 1 mm/hr (0-20)
[2021-02-04 15:58] LABS: Bilirubin Negative (Negative); Blood Negative (Negative); Clarity Clear (Clear); Glucose Negative (Negative); Ketones Negative (Negative); Leukocyte Esterase Negative (Negative); Nitrite Negative (Negative); Urobilinogen 0.2 EU/dL (Up TO 0.2); pH 5.5 (5-8)
[2021-02-04 16:22] LABS: PROTEIN < 6.0 mg/dL
[2021-02-04 16:45] LABS: COMMENT (LAB VIEW ONLY) 54.42 mg/dL
[2021-02-04 17:20] LABS: ALT 18 U/L (14-59); AST 14 U/L (15-37); Albumin 4.4 g/dL (3.4-5.0); Alkaline Phosphatase 58 U/L (46-116); Anion Gap 8.7 mmol/L (3-11); BUN 6 mg/dL (7-18); Bilirubin, Total 0.4 mg/dL (0.2-1.0); C-Reactive Protein 0.08 mg/dL (0.0-0.3); CO2 27.3 mmol/L (21.0-32.0); CREATININE 0.8 mg/dL (0.55-1.02); Calcium 8.9 mg/dL (8.5-10.1); Chloride 101 mmol/L (98-107); Glucose 95 mg/dL (74-106); Potassium 3.8 mmol/L (3.5-5.1); Sodium 137 mmol/L (136-145); Total Protein 6.6 g/dL (6.4-8.2)
[2021-02-07 10:57] LABS: C3 Complement 75 mg/dL (81-157); C4 Complement 18 mg/dL (13-39)
[2021-02-08 10:11] LABS: dsDNA Ab, IgG <12.3 IU/mL (<30.0)
== END 2021-02-04 02:55 | disposition home or self-care (01) ==
LOC: LBO 02:54
PROVIDERS: PCP Family Medicine; Visit Provider Internal Medicine Rheumatology
DX: M32.19 Other organ or system involvement in systemic lupus erythematosus (principal); R76.8 Other specified abnormal immunological findings in serum; Z79.899 Other long term (current) drug therapy
CPT/HCPCS: 36415; 80053; 85652; 81003; 82565; 84156; 85025; 86140; 86160; 86225

== ENCOUNTER 2021-07-04 21:09 | Emergency (ER) | payer MEDICAID, SELFPAY ==
[2021-07-04 21:23] VITALS: BP 104/57; PULSE 74; RESP 16; TEMP 36.6; O2SAT 100
--- NOTE | 2021-07-04 22:22 | ED.GENADUL_ITS ---
Discharge Plan Disposition Patient Disposition: HOME Condition: Stable Discharge Details Clinical Impression: Chronic abdominal pain, Abdominal bloating Primary Care Provider: Angel Lyman ED Provider: Raquel Loja Home Meds and New Rx's Prescriptions: Continued hydroxychloroquine [Plaquenil] 200 MG tablet 200 mg PO DAILY 0RF Discharge Instructions Instructions: Chronic Abdominal Pain (ED) Additional Instructions: Your lab work is reassuring and shows no evidence of acute significant concerning findings. Drink plenty of fluids and get plenty of rest. Take Tylenol as needed and directed for pain. You can consider taking an [id number] Pepcid, Prevacid or Prilosec for your upper abdominal pain, abdominal fullness and bloating. Call [facility] tomorrow morning to schedule a follow-up appointment for reevaluation of your IUD. Return immediately to the emergency department if you develop any worsening or new concerning symptoms. Referrals: [facility] [place], [place] [Provider Group] Discharge Data Discharge Physician: Raquel Loja Medical Decision Making 30-year-old female with a history of lupus, migraine, gluten intolerance presents with 3 weeks of abdominal pain, bloating and sensation of fullness with a request for removal of her IUD. Her vitals are within normal limits. Patient is tearful and states she is frustrated regarding her symptoms. Labs and urinalysis obtained on arrival. Patient's abdomen is soft and minimally tender in the lower quadrants. She has no rigidity or guarding. Discussed with patient at length that we may not determine the cause of her symptoms, but can consider CT imaging, referral for pelvic ultrasound and repeat a pelvic exam. Patient states she would like to know the cause of her symptoms and does not want another pelvic exam at this time and would rather follow-up with [facility] tomorrow. Discussed with patient that as her symptoms have been present for 3-week and are associated with bloating after eating, still may be a GI etiology but does not appear consistent with appendicitis, cholecystitis, ovarian torsion, UTI, pyelonephritis, colitis. Discussed with patient possibilities include gastritis, peptic ulcer, IBS or even consideration of her IUD causing her lower abdominal and back pain. Labs reviewed and note a white blood cell count of 12 with normal electrolytes and a urine negative for infection and negative . Patient states she would like to go home and does not want any medication or imaging at this time. Offered to order an outpatient pelvic ultrasound but she declines. Patient states she would rather call [facility] tomorrow for follow-up. She is requesting her IV be removed. Usual and customary return precautions given prior to discharge. Medical Records Medical records reviewed: Yes I reviewed the patient's medical records. HPI General Mode of arrival: ambulatory . Date/Time Provider Initiated Documentation: 07/04/21 21:40 . Limitations to Documentation: no limitations . Information obtained by: patient . HPI Narrative: Pt is a 30 yo F w/ a h/o Lupus, Migraine, who presents to the ED w/ a c/o abdominal pain, bloating and fullness for the past 3 weeks. Patient states her pain is intermittent and crampy but her symptoms abdominal bloating and fullness is constant. She states he has a gluten intolerance so she has changed her diet but this has not helped. She states she does not have any fever, nausea, vomiting, diarrhea or any change in bowel habits but does feel that when she eats she has gassy sense of abdominal fullness and bloating. She states her abdominal pain is sometimes worse in the upper abdomen and sometimes worse in the lower abdomen with radiation to her back. She denies any urinary symptoms, no vaginal discharge or significant vaginal bleeding. She states she saw her PCP today to get her IUD removed but states he was unable to find it on pelvic exam and with ultrasound. She states she was planning to have her IUD removed in preparation for a tubal ligation which is scheduled with [facility] soon. She states she is here today to see if her IUD can be found and removed and to find the cause of her symptoms. 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 Review of Systems All systems reviewed & are unremarkable except as noted in HPI and below Constitutional Constitutional: Reports as per HPI, Denies chills and Denies fever(s) Eyes Eyes: Denies blurry vision ENT Ears, Nose, Mouth, and Throat: Denies dizziness, Denies sore throat and Denies throat swelling Cardiovascular Cardiovascular: Denies chest pain and Denies dyspnea Respiratory Respiratory: Denies cough and Denies dyspnea Gastrointestinal Gastrointestinal: Reports abdominal pain, Reports bloating, Denies diarrhea and Denies vomiting Genitourinary Genitourinary: Denies hematuria and Denies dysuria Musculoskeletal Musculoskeletal: Denies back pain and Denies numbness Integumentary/Breasts Skin/Breast: Denies lesions and Denies rash Neurologic Neurologic: Denies dizziness, Denies localized weakness and Denies numbness Allergic/Immunologic Allergic/Immunologic: Denies throat swelling PFSH All Active Problems (Updated 07/04/21 @ 22:45 by Raquel Loja DO) Abrasion hand (Acute) Laceration of hand (Acute) Chronic abdominal pain (Acute) Abdominal bloating (Acute) Pneumonia (Acute) History of section (Acute 03/15/15) Migraine with aura (Chronic) On Depo-Provera for contraception (Acute) since RC/S 05/2015. Contraception (Acute 06/14/15) Depo Provera since 2015. Lupus (Chronic) Medical History (Updated 07/04/21 @ 22:45 by Raquel Loja DO) Abnormal results of thyroid function studies Acute stress reaction BASSEM positive CTS (carpal tunnel syndrome) History of varicella 1994 Iron deficiency Major depression Migraine headache Pain, eye, right Panic disorder Pelvic pain Nl CT of abd and pelvis. [place] [facility] [place] [employer] discouraged pt from having hysterectomy. Pelvic pain in female Spina bifida occulta Syncope Systemic lupus erythematosus Surgical History section 1. C/S 2. 05/31/15 elective repeat. F. [id number]. Tonsillectomy and adenoidectomy Social History Smoking/Tobacco Use Status: Current every day Tobacco Type: cigarettes Smoking risk assessment performed?: Yes Alcohol Intake: never Drug use: Never Substance use type: does not use Do you feel safe at home: Yes Do you feel safe in your relationship?: Yes Exam Const General: cooperative, healthy appearing and no acute distress HENMT Head: normal to inspection Mouth: oral mucosae normal Eyes General: appearance normal, both eyes and all related structures Neck Neck: normal visual inspection Resp Effort & Inspection: normal respiratory effort and able to speak in complete sentences Auscultation: clear to auscultation bilaterally Cardio Rate: regular rate GI Inspection: normal to inspection Palpation: soft, no guarding, not rigid and tender in the epigastrum, in the LLQ, in the RLQ and suprapubicly Auscultation: no hypoactive bowel sounds Skin General skin exam: no rashes or lesions noted Neuro General: patient alert, patient awake and patient oriented x3 Motor: muscle tone normal throughout Extrem General: normal to inspection and full ROM Psych Appearance: grossly normal Affect: normal affect Course Vital Signs Vital signs: Vital Signs Temperature 97.9 F 07/04/21 21:23 Pulse 74 07/04/21 21:23 Respiratory Rate 16 07/04/21 21:23 Blood Pressure 104/57 L 07/04/21 21:23 Pulse Oximetry 100 07/04/21 21:23 Temperature 97.9 F 07/04/21 21:23 Temperature Source Skin 07/04/21 21:23 Pulse 74 07/04/21 21:23 Respiratory Rate 16 07/04/21 21:23 Blood Pressure 104/57 L 07/04/21 21:23 Blood Pressure Position Sitting 07/04/21 21:23 Pulse Oximetry 100 07/04/21 21:23 Oxygen Delivery Method Room Air 07/04/21 21:23 Oxygen Flow Rate 0 07/04/21 21:23 Pain Level 9 07/04/21 21:23 Lab/Test Results Lab/Test Results: POC- Test(urine) Negative
[2021-07-04 22:31] LABS: Abs Immature Grans 0.06 10^3/uL (0.0-0.06); Absolute Basophil Count 0.07 10^3/uL (0.0-0.2); Absolute Eosinophil Count 0.08 10^3/uL (0.0-0.7); Absolute Lymphocyte Count 2.69 10^3/uL (1.2-3.4); Absolute Monocyte Count 0.84 10^3/uL (0.1-0.8); Basophils % 0.6; Eosinophils % 0.7; HCT 36.6 % (36.0-46.0); HGB 12.3 g/dL (11.2-15.7); Immature Grans % 0.5; Lymphocytes % 22.3; MCH 33.1 pg (27.0-33.0); MCHC 33.6 % (32.0-36.0); MCV 98.4 fL (80-95); MPV 10.1 fL (8.0-11.0); Neutrophils % 68.9; Nucleated RBC 0 %; Platelet Count 222 10^3/uL (130-400); RBC 3.72 10^6/uL (3.93-5.22); RDW 12.2 % (11.7-14.6); RDW-SD 44.8 fL; WBC 12.07 10^3/uL (4.4-10.8)
[2021-07-04 22:33] LABS: Absolute Neutrophil Count 8.32 10^3/uL (1.2-6.7)
[2021-07-04 22:34] LABS: Clarity Clear (Clear)
[2021-07-04 22:35] LABS: Bilirubin Negative (Negative); Blood Negative (Negative); Glucose Negative (Negative); Ketones Negative (Negative); Leukocyte Esterase Negative (Negative); Nitrite Negative (Negative); Specific Gravity < 1.005 (1.005-1.025); Urobilinogen 0.2 EU/dL (Up TO 0.2)
[2021-07-04 22:47] LABS: ALT 24 U/L (14-59); AST 19 U/L (15-37); Albumin 3.8 g/dL (3.4-5.0); Alkaline Phosphatase 72 U/L (46-116); Anion Gap 7.2 mmol/L (3-11); BUN 10 mg/dL (7-18); Bilirubin, Total 0.1 mg/dL (0.2-1.0); CO2 27.8 mmol/L (21.0-32.0); CREATININE 0.7 mg/dL (0.55-1.02); Calcium 8.8 mg/dL (8.5-10.1); Chloride 101 mmol/L (98-107); Glucose 90 mg/dL (74-106); Potassium 4.1 mmol/L (3.5-5.1); Sodium 136 mmol/L (136-145); Total Protein 6.8 g/dL (6.4-8.2)
== END 2021-07-04 23:04 | disposition home or self-care (01) ==
PROVIDERS: Emergency Provider Physician Assistant; PCP Family Medicine
DX: R10.31 Right lower quadrant pain (principal); R10.32 Left lower quadrant pain; R14.0 Abdominal distension (gaseous)
CPT/HCPCS: 80053; 81025; 99282; 81003; 85025

== ENCOUNTER → 2021-07-15 01:03 | Outpatient (CLI) | payer MEDICAID, SELFPAY | PROVIDERS: PCP Family Medicine; Visit Provider Nurse Practitioner Women's Health ==

== ENCOUNTER 2021-09-05 04:32 | Outpatient (CLI) | payer MEDICAID, SELFPAY | END 2021-09-05 04:33 | disposition home or self-care (01) | LOC: LBO 04:32 | PROVIDERS: PCP Family Medicine; Visit Provider Obstetrics & Gynecology ==

== ENCOUNTER 2021-09-05 04:37 | Outpatient (CLI) | payer MEDICAID, SELFPAY ==
[2021-09-05 08:49] LABS: HCT 36.9 % (36.0-46.0); HGB 12.3 g/dL (11.2-15.7); MCH 32.9 pg (27.0-33.0); MCHC 33.3 % (32.0-36.0); MCV 98.7 fL (80-95); MPV 9.5 fL (8.0-11.0); Platelet Count 229 10^3/uL (130-400); RBC 3.74 10^6/uL (3.93-5.22); RDW 12.1 % (11.7-14.6); RDW-SD 44.1 fL; WBC 8.45 10^3/uL (4.4-10.8)
[2021-09-05 11:30] LABS: Source Nasal/Nares
[2021-09-05 14:03] LABS: COVID-19 PCR Negative (Negative)
== END 2021-09-05 04:38 | disposition home or self-care (01) ==
LOC: LBO 04:37
PROVIDERS: PCP Family Medicine; Visit Provider Obstetrics & Gynecology
DX: R10.2 Pelvic and perineal pain (principal); Z30.09 Encounter for other general counseling and advice on contraception; Z01.818 Encounter for other preprocedural examination; Z01.812 Encounter for preprocedural laboratory examination; Z20.822 Contact with and (suspected) exposure to COVID-19
CPT/HCPCS: 36415; 85027; 86850; 86900; 86901; 87635; 85014; 85018

== ENCOUNTER 2021-09-08 06:04 | Day surgery (SDC) | payer MEDICAID, SELFPAY ==
[2021-09-08] VITALS (7 sets, daily range): BP systolic 89–100; BP diastolic 47–72; PULSE 56–77; RESP 16–22; TEMP 36.4–37; O2SAT 97–100; BMI 26.5
[2021-09-08] MEDS: Lactated Ringers 1,000 ML 125 ML IV (06:43)
--- NOTE | 2021-09-08 06:59 | ANES.PREOP_ITS ---
General Info Date of Service Date Performed: 09/08/21 Height: 5 ft 3 in Weight: 68 kg Body Mass Index (BMI): 26.5 Surgical Procedure: Operation Date: 09/08/21 07:40 Proposed Procedure Side Surgeon p Diagnostic Laparoscopy Preethi Deshpande MD s Salpingectomy Laparoscopic Bilateral Preethi Deshpande MD Meds Allergies and Home Medications Allergies Allergy/AdvReac Type Severity Reaction Status Date / Time ibuprofen AdvReac Intermediate Nausea Verified 09/06/21 15:20 Clear Adhesive Bandage AdvReac Intermediate Itchy skin Uncoded 09/06/21 15:20 - rash - feels like a burn Home Medication Medication Instructions Recorded hydroxychloroquine 200 mg tablet 200 mg PO DAILY tab-cap 08/04/16 (Plaquenil) Current Visit Medications: Current Medications Generic Name Dose Route Start Last Admin Trade Name Freq PRN Reason Stop Dose Admin Ringer's Solution 1,000 mls @ 125 mls/hr 09/08/21 06:00 09/08/21 06:43 IV 10/07/21 23:59 125 mls/hr INFUSION JERMAINE Administration IV Miscellaneous Supplies 1 each 09/08/21 06:00 Iv Access IV 10/07/21 23:59 DIRECTED JERMAINE Sodium Chloride 0 ml 09/08/21 06:00 Normal Saline Flush 10 Ml Syr IV 10/07/21 23:59 PRN PRN Sodium Chloride 0 ml 09/08/21 06:00 Normal Saline 10 Ml Vial IJ 10/07/21 23:59 DIRECTED PRN Sterile Water 0 ml 09/08/21 06:00 Water,Injection,Sterile 10 Ml Vial IJ 10/07/21 23:59 DIRECTED PRN PFSH Active Problems Active Problems: Problem Status Onset Code Consultation for sterilization Z30.09 Migraine with aura Systemic lupus erythematosus M32.9 Medical History Medical History Abdominal bloating Abnormal results of thyroid function studies Abrasion hand Acute stress reaction Celiac disease CTS (carpal tunnel syndrome) History of lupus History of varicella 1994 Iron deficiency Major depression Pain, eye, right Panic disorder Pelvic pain Nl CT of abd and pelvis. 2nd opinion at [facility] [place] [employer] Dept discouraged pt from having hysterectomy. Pneumonia Spina bifida occulta Syncope Surgical History Surgical History section 1. C/S 2. 05/31/15 elective repeat. F. [id number]. History of section (03/15/15) Hx of wisdom tooth extraction Tonsillectomy and adenoidectomy pt. states she has not had her tonsils out Tobacco Smoking/Tobacco Use Status: Current every day Tobacco Type: cigarettes Smoking cigarettes per day: 16 Alcohol Alcohol Intake: never Substance Use Substance use: Never Substance use type: does not use Vital Signs and Lab Results Vital Signs Most Recent Vital Signs in EMR: Most Recent Vital Signs Temp Pulse Resp BP Pulse Ox 37 C 73 16 100/64 100 09/08/21 06:15 09/08/21 06:15 09/08/21 06:15 09/08/21 06:15 09/08/21 06:15 Point of Care Results Point of Care Results: POC- Test(urine) Negative 09/08/21 06:50 Lab Results Blood Type / Crossmatch: Patient ABO/Rh O Positive 09/05/21 Antibody Screen NEGATIVE 09/05/21 Complete Blood Count: White Blood Count 8.45 10^3/uL (4.4-10.8) 09/05/21 08:45 09/05/21 Red Blood Count 3.74 10^6/uL (3.93-5.22) L 09/05/21 08:45 09/05/21 Hemoglobin 12.3 g/dL (11.2-15.7) 09/05/21 08:45 09/05/21 Hematocrit 36.9 % (36.0-46.0) 09/05/21 08:45 09/05/21 Platelet Count 229 10^3/uL (130-400) 09/05/21 08:45 09/05/21 Complete Metabolic Panel: No Data to Display Liver Function Panel: No Data to Display Coagulation Panel: No Data to Display Cardiac Panel: No Data to Display Arterial Blood Gas: No Data to Display Venous Blood Gas: No Data to Display Pancreas Panel: No Data to Display Thyroid Panel: No Data to Display Infectious Disease: Coronavirus (COVID-19)(PCR) Negative (Negative) 09/05/21 08:49 09/05/21 Coronavirus 2019 Source Nasal/Nares 09/05/21 08:49 09/05/21 Blood Cultures: No Data to Display Toxicology Panel: No Data to Display Panel: No Data to Display Imaging and Studies Imaging and Studies Study information below may be from another EMR and interpreted by another provider. Please see original notes in EMR for more complete details. Echocardiogram Summary: Conclusion The Left Ventricular Ejection Fraction is 60-65%, without wall motion abnormalities The left ventricular diastolic function is normal. The right ventricle shows normal size and function. Both atria are normal size The aortic valve is normal in structure without stenosis. The mitral valve is normal in structure with trace regurgitation The tricuspid valve is normal in structure with mild regurgitation The aortic root is normal in size. There is no pericardial effusion. This represents a normal echocardiogram Anesthesia Assessment and Plan Anesthesia History Personal History: No History of Anesthesia Complications Family History: No Family History of Anesthesia Complications Exercise Tolerance Exercise Tolerance: Metabolic Equivalents>4 Pertinent Negatives Pertinent Negatives: No Symptoms of GERD, No Major Cardiovascular Symptoms or Complaints and No Major Pulmonary Symptoms or Complaints Cardiac & Pulmonary Exam Cardiac Exam: Normal S1/S2 Heart Sounds Pulmonary Exam: Clear Bilateral Breath Sounds Implantable Cardiac Device Does patient have a Pacemaker or an ICD?: No Airway Exam Known Difficult Airway: No Mallampati Class: 1 Mouth Opening: Normal (> 3cm) Thyromental Distance: Greater than 3 cm Neck Range of Motion: Full ROM Neck Circumference: Normal Teeth Condition: Normal Dentition ASA Classification ASA Score: ASA 2 Emergency Case?: No NPO Status NPO Status: NPO Clears >2 hours, Solids >8 hours Status Status: Negative HCG Anesthesia Plan Resuscitation Status: Full Code Anesthesia Technique: General Anesthesia Airway Planned: Natural Airway Monitors Used: Standard Monitors
[2021-09-08] MEDS: Bupivacaine 0.25% Pres-Free 30 ML VIAL (08:00)
--- NOTE | 2021-09-08 08:09 | FALL_PTH ---
PATIENT: aKylyn Gibson LOC: [facility] U#:[id number] AGE/SX: 30/F ROOM: RE09/08/[address]: Preethi Deshpande MD : 1990 BED: DIS: 09/08/2021 SPEC #: [id number] RECD: 09/08/21 12:46 STATUS: ADRIAN RE #: [id number] ROBERT: 09/08/21 08:[address]: Preethi Deshpande DEPT: Surgical Specimen RECD BY: Loida Miranda ENTERED: 09/08/21 12:48 SP TYPE: Fall OTHR DR: Angel Lyman Tissues: 1 - FALLOPIAN TUBE (STERILIZATION) 2 - PERITONEUM/RADHA BIOPSY Procedures: GROSS AND MICRO LEVEL 2 GROSS AND MICRO LEVEL 4 Comments: [id number]
--- NOTE | 2021-09-08 08:29 | ROE_ITS ---
Date of service: 09/08/21 Time of Service: 08:30 Operative Note Operative Note DATE OF PROCEDURE: 09/08/21 PRE-OP DIAGNOSIS: Desires permanent sterilization, chronic pelvic pain POST-OP DIAGNOSIS: same possible endometriosis PROCEDURE: Diagnostic laparoscopy, bilateral tubal ligation SURGEON: Preethi Deshpande ASSISTING SURGEON: Dorene Du Refer to Anesthesia Record ESTIMATED BLOOD LOSS: 0 (minimal) COMPLICATIONS: None Patient was transported to: PACU Patient's condition: stable Indications: Desires permanent sterilization, chronic pelvic pain Findings: Normal appearing external genitalia, vagina and cervix. Normal appearing uterus, ovaries and tubes. There was a very small brown lesion on the left pelvic side wall and a small clear lesion in the right posterior cul-de-sac. No obvious abnormalities of the lower abdomen. Procedure Description: After informed consent was signed the patient was taken to the operating room and given general anesthesia.? SCDs were placed on her legs.? She was prepped and draped in the dorsal lithotomy position in the [facility].? A Her bladder was drained of urine via a straight catheter. A speculum was placed into the vagina to expose the cervix and a hulka manipulator was placed into the cervix. The speculum was removed. Gloves were changed and attention was turned to the abdomen. The infraumbilical fold was grasped and injected with 0.25% marcaine with epinephrine. A 12mm incision was made in the infraumbilical fold with the scalpel. A hemostat was used to bluntly dissect the subcuticular layers. The visiport was then assembled and used to enter the abdomen under direct visualization. Once entrance to the abdominal cavity was confirmed the CO2 was turned on and the abdomen was insufflated. Two lateral 5mm ports were then placed under direct visualization. The abdomen was examined for evidence of endometriosis. The uterus, ovaries and tubes appeared normal. There was a very small brown lesion on the left pelvic side wall and there was a small clear lesion in the right posterior cul-de-sac. This was lifted off the pelvic wall, cauterized and cut to remove for sampling. The left tube was identified and followed to the fimbriated end. The tube was grasped and elevated and the mesosalpinx was clamped, cauterized and cut with the ligasure device. The was continued along the length of the tube. The proximal end of the tube was then transected with the ligasure. Good hemostasis was noted. The right tube was then identified and followed to the fimbriated end. The tube was grasped and elevated and the mesosalpinx was clamped, cauterized and cut with the ligasure device. The was continued along the length of the tube. The proximal end of the tube was then transected with the ligasure. Good hemostasis was noted on both sides. The ports were removed. The gas was released from the abdomen. The fascia of the umbilical incision was identified and closed with a [id number] suture of 0 vicryl. The skin incisions were then closed with 4-0 vicryl. Mastisol and steristrips were placed. The manipulator was removed. The patient was placed back into the supine position.? She was moved to the stretcher and taken to the recovery room in stable condition.
[2021-09-08] MEDS: fentaNYL 100 MCG/2 ML VIAL IVP (08:55)
--- NOTE | 2021-09-08 09:10 | W.ANESPOSTOP ---
Postoperative Evaluation Date, Time and Location Date Performed: 09/08/21 Time Performed: 09:10 Patient Location: PACU Vital Signs Most Recent Imported Vital Signs: Most Recent Vital Signs Temp Pulse Resp BP Pulse Ox 36.6 C 77 21 89/49 L 99 09/08/21 08:58 09/08/21 08:58 09/08/21 08:58 09/08/21 08:58 09/08/21 08:58 Pain Score Most Recent Pain Score: Most Recent Pain Score Pain Level 5 09/08/21 08:58 Assessment Mental Status: Awake (Alert & Oriented to Patient Baseline) Airway and Respiratory Function: Patent airway with normal (patient baseline) respiratory exam Cardiovascular Function: Hemodynamically Stable Hydration Status: Adequately Hydrated Nausea & Vomiting: No Nausea or Vomiting Pain: Pain is tolerable per patient Peripheral Nerve Block: Patient did not receive a nerve block
== END 2021-09-08 10:00 | disposition home or self-care (01) ==
PROVIDERS: PCP Family Medicine; Visit Provider Obstetrics & Gynecology
PROC: (CPT 49320; principal; 2021-09-08 07:30)
PROC: (CPT 58661; 2021-09-08 07:30)
DX: Z30.2 Encounter for sterilization (principal); G89.29 Other chronic pain; R10.2 Pelvic and perineal pain; K90.0 Celiac disease; F41.0 Panic disorder [episodic paroxysmal anxiety]; N80.9 Endometriosis, unspecified
CPT/HCPCS: 58661; 58662; 81025; 88305; 88302; J1100; J1885; J2001; J2250; J2405; J3010

== ENCOUNTER 2021-12-29 02:56 | Outpatient (RCR) | payer MEDICAID, SELFPAY ==
[2021-12-15 09:10] VITALS: BP 99/65; PULSE 75; RESP 16; TEMP 36.9; O2SAT 99
[2021-12-15] MEDS: Normal Saline Flush 10 ML SYR IVP (09:45)
[2021-12-15] MEDS: diphenhydrAMINE 25 MG CAP 50 MG PO (09:53)
[2021-12-15] MEDS: Ondansetron 4 MG/2 ML VIAL 8 MG IVP (09:53)
[2021-12-15] MEDS: Acetaminophen 325 MG TAB 650 MG PO (09:53)
[2021-12-15 10:25] VITALS: BP 98/62; PULSE 61; RESP 16; TEMP 37.1; O2SAT 98
[2021-12-15 10:56] VITALS: BP 102/68; PULSE 56; RESP 16; TEMP 37.1; O2SAT 100
[2021-12-29] MEDS: Acetaminophen 325 MG TAB 650 MG PO (08:52)
[2021-12-29] MEDS: Ondansetron 4 MG/2 ML VIAL 8 MG IVP (08:53)
[2021-12-29] MEDS: Normal Saline Flush 10 ML SYR IVP (08:53)
[2021-12-29 09:06] VITALS: BP 105/71; PULSE 68; RESP 16; TEMP 36.4; O2SAT 98
[2021-12-29 09:54] VITALS: BP 116/63; PULSE 66; RESP 16; TEMP 36.7; O2SAT 100
[2021-12-29 10:30] VITALS: BP 98/56; PULSE 66; RESP 18; TEMP 36.7; O2SAT 100
== END 2022-01-11 23:59 | disposition home or self-care (01) ==
LOC: INF 02:56
PROVIDERS: PCP Family Medicine; Visit Provider Family Medicine
DX: M32.9 Systemic lupus erythematosus, unspecified (principal)
CPT/HCPCS: 96365; 96374; J0490; J2405

== ENCOUNTER 2022-02-09 03:50 | Outpatient (RCR) | payer MEDICAID, SELFPAY ==
[2022-01-12 00:13] VITALS: BP 98/56; PULSE 66; RESP 18; TEMP 36.7
[2022-01-12] MEDS: Normal Saline Flush 10 ML SYR IVP (08:54)
[2022-01-12 08:55] VITALS: BP 98/59; PULSE 67; RESP 17; TEMP 36.7; O2SAT 99
[2022-01-12] MEDS: Acetaminophen 325 MG TAB 650 MG PO (08:58)
[2022-01-12 10:48] VITALS: BP 104/67; PULSE 57; RESP 17; TEMP 36.5; O2SAT 99
[2022-01-12 11:30] VITALS: BP 98/64; PULSE 58; RESP 20; TEMP 36.7; O2SAT 100
== END 2022-02-10 23:59 | disposition home or self-care (01) ==
LOC: INF 03:50
PROVIDERS: PCP Family Medicine; Visit Provider Family Medicine
DX: M32.9 Systemic lupus erythematosus, unspecified (principal)
CPT/HCPCS: 96365; J0490

== ENCOUNTER 2022-03-13 02:39 | Outpatient (RCR) | payer MEDICAID, SELFPAY ==
[2022-02-11 00:08] VITALS: BP 98/64; PULSE 58; RESP 20; TEMP 36.7
[2022-02-13] MEDS: Acetaminophen 325 MG TAB 650 MG PO (10:29)
[2022-02-13 10:36] VITALS: BP 107/75; PULSE 68
[2022-02-13] MEDS: Normal Saline Flush 10 ML SYR IVP (11:51)
[2022-02-13 12:20] VITALS: BP 104/67; PULSE 64
[2022-02-13 12:55] VITALS: BP 106/62; PULSE 66
[2022-03-13 08:45] VITALS: BP 103/50; PULSE 63; RESP 17; TEMP 37; O2SAT 100
[2022-03-13] MEDS: Normal Saline Flush 10 ML SYR IVP (08:46)
[2022-03-13] MEDS: Acetaminophen 325 MG TAB 650 MG PO (08:46)
[2022-03-13 09:43] VITALS: BP 101/57; PULSE 66; RESP 17; TEMP 36.8; O2SAT 99
[2022-03-13 10:20] VITALS: BP 108/65; PULSE 67; RESP 17; TEMP 36.6; O2SAT 98
== END 2022-03-13 23:59 | disposition home or self-care (01) ==
LOC: INF 02:39
PROVIDERS: PCP Family Medicine; Visit Provider Family Medicine
DX: M32.9 Systemic lupus erythematosus, unspecified (principal)
CPT/HCPCS: 96365; J0490

== ENCOUNTER 2022-04-10 02:40 | Outpatient (RCR) | payer MEDICAID, SELFPAY ==
[2022-03-14 00:16] VITALS: BP 108/65; PULSE 67; RESP 17; TEMP 36.6
[2022-04-10] MEDS: Acetaminophen 325 MG TAB (08:57)
[2022-04-10 09:20] VITALS: BP 106/69; PULSE 78; RESP 17; TEMP 36.6; O2SAT 98
[2022-04-10 09:54] VITALS: BP 93/60; PULSE 72; RESP 16; TEMP 36.4; O2SAT 98
[2022-04-10 10:30] VITALS: BP 100/67; PULSE 74; RESP 16; TEMP 36.7; O2SAT 99
== END 2022-04-12 23:59 | disposition home or self-care (01) ==
LOC: INF 02:40
PROVIDERS: PCP Family Medicine; Visit Provider Family Medicine
DX: M32.9 Systemic lupus erythematosus, unspecified (principal)
CPT/HCPCS: 96365; J0490

== ENCOUNTER 2022-05-09 03:24 | Outpatient (RCR) | payer MEDICAID, SELFPAY ==
[2022-04-13 00:08] VITALS: BP 100/67; PULSE 74; RESP 16; TEMP 36.7
[2022-05-09] MEDS: Acetaminophen 325 MG TAB 650 MG PO (09:01)
[2022-05-09 09:15] VITALS: BP 117/72; PULSE 76; RESP 16; O2SAT 98
[2022-05-09] MEDS: Normal Saline Flush 10 ML SYR IVP (09:18)
[2022-05-09 10:27] VITALS: BP 105/70; PULSE 70
== END 2022-05-13 23:59 | disposition home or self-care (01) ==
LOC: INF 03:24
PROVIDERS: PCP Family Medicine; Visit Provider Family Medicine
DX: M32.9 Systemic lupus erythematosus, unspecified (principal)
CPT/HCPCS: 96365; J0490

== ENCOUNTER 2022-06-06 03:09 | Outpatient (RCR) | payer MEDICAID, SELFPAY ==
[2022-05-14 00:05] VITALS: BP 105/70; PULSE 70; RESP 16; TEMP 36.7
[2022-06-06] MEDS: Acetaminophen 325 MG TAB 650 MG PO (08:35)
[2022-06-06 08:50] VITALS: BP 107/72; PULSE 85; RESP 18; TEMP 37.3; O2SAT 98
[2022-06-06 09:43] VITALS: BP 108/71; PULSE 75; RESP 17; TEMP 37.5; O2SAT 96
[2022-06-06 10:19] VITALS: BP 108/71; PULSE 75; RESP 17; TEMP 37.1; O2SAT 99
== END 2022-06-13 23:59 | disposition home or self-care (01) ==
LOC: INF 03:09
PROVIDERS: PCP Family Medicine; Visit Provider Family Medicine
DX: M32.9 Systemic lupus erythematosus, unspecified (principal)
CPT/HCPCS: 96365; J0490

== ENCOUNTER 2022-07-04 01:53 | Outpatient (RCR) | payer MEDICAID, SELFPAY ==
[2022-06-14 00:04] VITALS: BP 108/71; PULSE 75; RESP 17; TEMP 37.1
[2022-07-04 09:00] VITALS: BP 107/74; PULSE 74; RESP 16; O2SAT 100
[2022-07-04] MEDS: Normal Saline Flush 10 ML SYR IVP (09:02)
[2022-07-04] MEDS: Acetaminophen 325 MG TAB 650 MG PO (09:02)
[2022-07-04 10:00] VITALS: BP 112/73; PULSE 68; RESP 16; O2SAT 100
[2022-07-04 10:34] VITALS: BP 117/76; PULSE 65; O2SAT 99
== END 2022-07-11 23:59 | disposition home or self-care (01) ==
LOC: INF 01:53
PROVIDERS: PCP Family Medicine; Visit Provider Family Medicine
DX: M32.9 Systemic lupus erythematosus, unspecified (principal)
CPT/HCPCS: 96365; J0490

== ENCOUNTER 2022-08-01 02:11 | Outpatient (RCR) | payer MEDICAID, SELFPAY ==
[2022-07-12 00:03] VITALS: BP 117/76; PULSE 65; RESP 16; TEMP 37.1
[2022-08-01] MEDS: Normal Saline Flush 10 ML SYR IVP (08:32)
[2022-08-01] MEDS: Acetaminophen 325 MG TAB 650 MG PO (08:33)
[2022-08-01 08:50] VITALS: BP 101/62; PULSE 89; RESP 16; TEMP 36.8; O2SAT 99
[2022-08-01 09:25] VITALS: BP 98/62; PULSE 82; RESP 16; TEMP 36; O2SAT 98
[2022-08-01 10:00] VITALS: BP 104/54; PULSE 81; RESP 16; TEMP 36; O2SAT 98
== END 2022-08-11 23:59 | disposition home or self-care (01) ==
LOC: INF 02:11
PROVIDERS: PCP Family Medicine; Visit Provider Family Medicine
DX: M32.9 Systemic lupus erythematosus, unspecified (principal)
CPT/HCPCS: 96365; J0490

== ENCOUNTER 2022-08-29 02:10 | Outpatient (RCR) | payer MEDICAID, SELFPAY ==
[2022-08-12 00:16] VITALS: BP 104/54; PULSE 81; RESP 16; TEMP 36
[2022-08-29] MEDS: Acetaminophen 325 MG TAB 650 MG PO (08:33)
[2022-08-29 08:35] VITALS: BP 105/70; PULSE 83; RESP 16; TEMP 36.2; O2SAT 100
[2022-08-29] MEDS: Normal Saline Flush 10 ML SYR IVP (08:58)
[2022-08-29 09:34] VITALS: BP 118/74; PULSE 87; RESP 16; TEMP 37.4; O2SAT 98
[2022-08-29 10:05] VITALS: BP 119/82; PULSE 72; RESP 16; TEMP 35.9; O2SAT 98
== END 2022-09-10 23:59 | disposition home or self-care (01) ==
LOC: INF 02:10
PROVIDERS: PCP Family Medicine; Visit Provider Family Medicine
DX: M32.9 Systemic lupus erythematosus, unspecified (principal)
CPT/HCPCS: 96365; J0490

== ENCOUNTER 2022-09-13 14:19 | Outpatient (REF) | payer MEDICAID, SELFPAY ==
--- NOTE | 2022-09-13 13:35 | ENDOMET_PTH ---
PATIENT: Kaylyn Gibson LOC: N U#:[id number] AGE/SX: 31/F ROOM: RE09/13/[address]: Preethi Deshpande MD : 1990 BED: DIS: 09/13/2022 SPEC #: [id number] RECD: 09/13/22 16:32 STATUS: ADRIAN REArtem #: [id number] ROBERT: 09/13/22 13:[address]: Preethi Deshpande DEPT: Surgical Specimen RECD BY: Loida Miranda ENTERED: 09/13/22 16:32 SP TYPE: Endomet OTHR DR: Angel Lyman Tissues: 1 - ENDOMETRIUM BX/ROULA Procedures: GROSS AND MICRO LEVEL 4 Comments: [id number]
--- NOTE | 2022-09-13 13:35 | PAPFT_PTH ---
PATIENT: Kaylyn Gibson LOC: [facility] U#:[id number] AGE/SX: 31/F ROOM: RE09/13/[address]: Preethi Deshpande MD : 1990 BED: DIS: 09/13/2022 SPEC #: [id number] RECD: 09/13/22 17:56 STATUS: ADRIAN REArtem #: [id number] ROBERT: 09/13/22 13:[address]: Preethi Deshpande DEPT: [facility] Cytology RECD BY: Loida Miranda ENTERED: 09/13/22 17:57 SP TYPE: PAPFT OTHR DR: Angel Lyman Tissues: 1 - CX/ENDOCX FOR PAP SMEARS Procedures: PAP THIN PREP/UVM Screening HPV DNA PROBE Comments: [id number]
== END 2022-09-13 14:20 | disposition home or self-care (01) ==
LOC: LBN 14:19
PROVIDERS: PCP Family Medicine; Visit Provider Obstetrics & Gynecology
DX: N85.8 Other specified noninflammatory disorders of uterus (principal); N93.8 Other specified abnormal uterine and vaginal bleeding; Z12.4 Encounter for screening for malignant neoplasm of cervix; R87.610 Atypical squamous cells of undetermined significance on cytologic smear of cervix (ASC-US); Z11.51 Encounter for screening for human papillomavirus (HPV)
CPT/HCPCS: 88142; 88305; 87624

== ENCOUNTER 2022-09-26 02:19 | Outpatient (RCR) | payer MEDICAID, SELFPAY ==
[2022-09-11 00:07] VITALS: BP 119/82; PULSE 72; RESP 16; TEMP 35.9
[2022-09-26] MEDS: Acetaminophen 325 MG TAB 650 MG PO (08:28)
[2022-09-26 08:35] VITALS: BP 102/66; PULSE 75; RESP 16; TEMP 36.9; O2SAT 99
[2022-09-26] MEDS: Normal Saline Flush 10 ML SYR IVP (09:05)
[2022-09-26 09:35] VITALS: BP 96/64; PULSE 67; RESP 15; TEMP 36.7; O2SAT 99
[2022-09-26 10:05] VITALS: BP 95/54; PULSE 70; RESP 14; TEMP 36.7; O2SAT 98
== END 2022-10-11 23:59 | disposition home or self-care (01) ==
LOC: INF 02:19
PROVIDERS: PCP Family Medicine; Visit Provider Family Medicine
DX: M32.9 Systemic lupus erythematosus, unspecified (principal)
CPT/HCPCS: 96365; J0490

== ENCOUNTER 2022-10-06 01:26 | Outpatient (CLI) | payer MEDICAID, SELFPAY ==
[2022-10-06 10:39] LABS: COMMENT (LAB VIEW ONLY) 36.69 mg/dL; PROTEIN 8.5 mg/dL; Prot/Crea Ur Ratio 0.23
[2022-10-06 10:45] LABS: Creatine Kinase 127 U/L (26-192)
[2022-10-09 09:41] LABS: C3 Complement 89 mg/dL (81-157); C4 Complement 18 mg/dL (13-39)
== END 2022-10-06 01:27 | disposition home or self-care (01) ==
LOC: LBO 01:27
PROVIDERS: PCP Family Medicine; Visit Provider Internal Medicine Rheumatology
DX: M32.19 Other organ or system involvement in systemic lupus erythematosus (principal); Z79.899 Other long term (current) drug therapy; R53.83 Other fatigue; I73.00 Raynaud's syndrome without gangrene
CPT/HCPCS: 36415; 82550; 82565; 84156; 86160

== ENCOUNTER 2023-11-14 15:54 | Outpatient (REF) | payer MEDICAID, SELFPAY ==
--- NOTE | 2023-11-14 13:40 | PAPFT_PTH ---
PATIENT: Kaylyn Gibson LOC: [facility] U#:[id number] AGE/SX: 32/F ROOM: RE11/14/[address]: Leslie Garza NP : 1990 BED: DIS: 11/14/2023 SPEC #: [id number] RECD: 11/14/23 17:29 STATUS: ADRIAN MUÑOZ #: [id number] ROBERT: 11/14/23 13:[address]: Leslie Garza NP DEPT: [facility] Cytology RECD BY: Loida Miranda ENTERED: 11/14/23 17:29 SP TYPE: PAPFT OTHR DR: Angel Lyman Tissues: 1 - CX/ENDOCX FOR PAP SMEARS Procedures: PAP THIN PREP/UVM Screening HPV DNA PROBE Comments: [id number] (HPV 16 & 18/45)
== END 2023-11-14 15:55 | disposition home or self-care (01) ==
LOC: LBN 15:54
PROVIDERS: PCP Family Medicine; Visit Provider Nurse Practitioner Women's Health
DX: Z12.4 Encounter for screening for malignant neoplasm of cervix (principal); N77.1 Vaginitis, vulvitis and vulvovaginitis in diseases classified elsewhere
CPT/HCPCS: 88142; 87624

== ENCOUNTER 2023-12-14 08:42 | Emergency (ER) | payer MEDICAID, SELFPAY ==
[2023-12-14] VITALS (20 sets, daily range): BP systolic 116–128; BP diastolic 63–74; PULSE 72–96; RESP 14–16; TEMP 37–37.4; O2SAT 99–100
--- NOTE | 2023-12-14 09:10 | W.ED.GENAD ---
Discharge Plan Disposition Patient Disposition: Home Condition: Improving Discharge Details Chief Complaint: GenMedical Clinical Impression: Anemia Primary Care Provider: Angel Lyman ED Provider: Vadim Esquivel Home Meds and New Rx's Prescriptions: No Action multivitamin Tablet 1 tab PO DAILY cholecalciferol (vitamin D3) 10 mcg (400 unit) capsule 10 mcg PO DAILY Patient Comments: 09/13/22- unsure of dose magnesium 250 mg tablet 250 mg PO DAILY Patient Comments: 09/13/22- unsure of dose lisdexamfetamine [Vyvanse] 40 mg capsule 60 mg PO DAILY ferrous sulfate [FeroSul] 325 mg (65 mg iron) tablet 45 mg PO DAILY elderberry fruit 350 mg capsule 350 mg PO DAILY apple cider vinegar 300 mg tablet 200 mg PO DAILY cranberry 400 mg capsule 400 mg PO DAILY Rx Instructions: administer with a meal medroxyprogesterone [Depo-Provera] 150 mg/mL syringe 150 mg IM Q10W Qty: 1 6RF medroxyprogesterone [Depo-Provera] 150 mg/mL syringe 150 mg IM ONCE Qty: 1 0RF hydroxychloroquine [Plaquenil] 200 MG tablet 200 mg PO DAILY Discharge Instructions Instructions: Anemia of Inflammation (DC) Additional Instructions: 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 HPI Narrative: 32-year-old female history of lupus found to have a hemoglobin of 6.7 on outpatient labs. Has been feeling fatigued over the past couple of days to weeks. No chest pain, no rectal bleeding no vaginal bleeding no vomiting. No abdominal pain. Related Data Home Medications ?Medication ?Instructions ?Recorded ?Confirmed hydroxychloroquine 200 mg tablet 200 mg PO DAILY 08/04/16 12/14/23 (Plaquenil) cholecalciferol (vitamin D3) 10 10 mcg PO DAILY 09/13/22 12/14/23 mcg (400 unit) capsule magnesium 250 mg tablet 250 mg PO DAILY 09/13/22 12/14/23 multivitamin 1 tab PO DAILY 09/13/22 12/14/23 lisdexamfetamine 40 mg capsule 60 mg PO DAILY 01/22/23 12/14/23 (Vyvanse) apple cider vinegar 300 mg tablet 200 mg PO DAILY 04/09/23 12/14/23 cranberry 400 mg capsule 400 mg PO DAILY 04/09/23 12/14/23 elderberry fruit 350 mg capsule 350 mg PO DAILY 04/09/23 12/14/23 ferrous sulfate 325 mg (65 mg 45 mg PO DAILY 04/09/23 12/14/23 iron) tablet (FeroSul) medroxyprogesterone 150 mg/mL 150 mg IM Q10W #1 mL 04/09/23 12/14/23 intramuscular syringe (Depo-Provera) Previous Rx's ?Medication ?Instructions ?Recorded medroxyprogesterone 150 mg/mL 150 mg IM Q10W #1 mL 04/09/23 intramuscular syringe (Depo-Provera) Allergies Allergy/AdvReac Type Severity Reaction Status Date / Time gluten Allergy Other (See Unverified 12/14/23 08:52 Comment) ibuprofen AdvReac Intermediate Nausea Verified 12/14/23 08:52 dairy Allergy Other (See Uncoded 12/14/23 08:52 Comment) Clear Adhesive Bandage AdvReac Intermediate Itchy skin Uncoded 12/14/23 08:52 - rash - feels like a burn General Stated Complaint: GenMedical MING: 3 Exam Narrative Exam Narrative: Alert oriented interactive Speaking full senses no respiratory distress Moving all extremities without deficit Course Vital Signs Vital signs: Vital Signs Temperature 37.4 C 12/14/23 08:51 Pulse 96 H 12/14/23 08:51 Respiratory Rate 16 12/14/23 08:51 Blood Pressure 127/63 12/14/23 08:51 Pulse Oximetry 100 12/14/23 08:51 Temperature 37.4 C 12/14/23 09:05 Temperature Source Skin 12/14/23 09:05 Pulse 96 H 12/14/23 09:05 Respiratory Rate 16 12/14/23 09:05 Respiratory Effort Short of Breath 12/14/23 09:03 Respiratory Depth Normal 12/14/23 08:57 Blood Pressure 127/63 12/14/23 09:05 Blood Pressure Position Sitting 12/14/23 09:05 Pulse Oximetry 100 12/14/23 09:05 Oxygen Delivery Method Room Air 12/14/23 09:05 Oxygen Flow Rate 0 12/14/23 09:05 Pain Level 0 12/14/23 09:05 Medical Decision Making 32-year-old female history of lupus presents with fatigue in the setting of anemia 6.7 on outpatient labs. Denies rectal bleeding or vaginal bleeding denies vomiting. Hemodynamically stable afebrile nontoxic neurologically intact. Likely anemia of chronic disease lower suspicion for GI bleed or traumatic injury. Will obtain basic labs type and screen will likely transfuse 2 units of PRBC. 12: 00 patient resting comfortably no acute distress. Given hemoglobin over 7 patient was given 1 unit. Patient to follow-up with primary care or rheumatology Quality:SDOH Health Related Social Needs: No Data to Display PFSH All Active Problems (Updated 12/14/23 @ 12:01 by Vadim Esquivel MD) Anemia (Chronic) Migraine with aura (Chronic) Systemic lupus erythematosus (Chronic) Medical History Irregular bleeding Improved with POPs. Switched to depo 11/02/22 Acne improved on POPs Endometriosis determined by laparoscopy Lap BTL 09/08/21, +endo on path Celiac disease Pneumonia Spina bifida occulta Iron deficiency CTS (carpal tunnel syndrome) Panic disorder Major depression Syncope History of varicella 1994 Surgical History History of laparoscopy 09/08/21: BTL and bx confirmed endometriosis (2 tiny spots on peritoneum) Hx of wisdom tooth extraction History of section (03/15/15) 2011 PCS for arrest 2015 [facility] Tonsillectomy and adenoidectomy pt. states she has not had her tonsils out Social History Smoking/Tobacco Use Status: Current every day Tobacco Type: cigarettes Tobacco: How many years used: 14 Quit status: not considering quitting Smoking risk assessment performed?: Yes Alcohol Intake: never Drug use: Never Substance use type: does not use Do you feel safe at home: Yes Do you feel safe in your relationship?: Yes Female Reproductive History Menstrual control method: permanent sterilization History History 2 Para 2 Hx # Term Pregnancies 2 Multiple births Hx # Pregnancies Ectopic pregnancies AB induced Hx Number of Living Children 2 AB spontaneous Past Pregnancies Del. Date GA/Weeks # Preg Succ Route Wgt Sex Labor Lgth Anesthesia Location Prov Complic 09/15/12 No 3203.496 g Male [facility] 05/31/15 No 3968.933 g Female [facility] Delivery Date: 01/27/12 Last Updated by: Preethi Deshpande M.D. PCS for arrest Delivery Date: 05/31/15 Last Updated by: Preethi Deshpande M.D. RCS
[2023-12-14 09:25] LABS: Abs Immature Grans 0.03 10^3/uL (0.0-0.06); Absolute Basophil Count 0.06 10^3/uL (0.0-0.2); Absolute Lymphocyte Count 1.33 10^3/uL (1.2-3.4); Absolute Monocyte Count 0.41 10^3/uL (0.1-0.8); Absolute Neutrophil Count 4.85 10^3/uL (1.2-6.7); Basophils % 0.9 %; HCT 24.6 % (36.0-46.0); HGB 7.2 g/dL (11.2-15.7); Immature Grans % 0.4 %; Lymphocytes % 19.9 %; MCH 23.8 pg (27.0-33.0); MCHC 29.3 % (32.0-36.0); MCV 82 fL (80-95); MPV 9.2 fL (8.0-11.0); Monocytes % 6.1 %; Neutrophils % 72.7 %; Platelet Count 333 10^3/uL (130-400); RBC 3.02 10^6/uL (3.93-5.22); RDW 16.8 % (11.7-14.6); RDW-SD 47.9 fL; WBC 6.68 10^3/uL (4.4-10.8)
[2023-12-14 09:37] LABS: ALT 23 U/L (14-59); AST 15 U/L (15-37); Albumin 3.9 g/dL (3.4-5.0); Alkaline Phosphatase 76 U/L (46-116); Anion Gap 9.6 mmol/L (3-11); BUN 7 mg/dL (7-18); Bilirubin, Total 0.17 mg/dL (0.2-1.0); CO2 26.4 mmol/L (21.0-32.0); CREATININE 0.8 mg/dL (0.55-1.02); Calcium 9.1 mg/dL (8.5-10.1); Chloride 107 mmol/L (98-107); Estimated GFR 101.59 (mL/min/1.73m2); Glucose 99 mg/dL (74-106); Potassium 3.8 mmol/L (3.5-5.1); Prothrombin Time 10.2 sec (9.1-11.1); Sodium 143 mmol/L (136-145); Total Protein 7.2 g/dL (6.4-8.2)
== END 2023-12-14 12:12 | disposition home or self-care (01) ==
PROVIDERS: Emergency Provider Emergency Medicine; PCP Family Medicine
DX: D64.9 Anemia, unspecified (principal); R53.83 Other fatigue; K90.0 Celiac disease; Q76.0 Spina bifida occulta; M32.9 Systemic lupus erythematosus, unspecified; F17.210 Nicotine dependence, cigarettes, uncomplicated
CPT/HCPCS: 36430; 80053; 86850; 86900; 86901; 86920; 99283; 85025; 85610; 85730; P9016

== ENCOUNTER 2024-02-23 16:21 | Outpatient (REF) | payer MEDICAID, SELFPAY ==
[2024-02-23 16:41] LABS: HCT 36.6 % (36.0-46.0); HGB 11.9 g/dL (11.2-15.7); MCHC 32.5 % (32.0-36.0); MCV 89 fL (80-95); MPV 10.4 fL (8.0-11.0); Platelet Count 256 10^3/uL (130-400); RBC 4.11 10^6/uL (3.93-5.22); RDW 18.6 % (11.7-14.6); RDW-SD 61.6 fL; WBC 5.05 10^3/uL (4.4-10.8)
[2024-02-23 17:01] LABS: Iron 82 ug/dL (50-170); Total Iron Binding Capacity 284 ug/dL (250-450)
[2024-02-23 17:28] LABS: Ferritin 38 ng/mL (8-252); Vitamin B12 377 pg/mL (193-986)
[2024-02-23 17:41] LABS: Folate > 20.0 ng/mL (8.6-20.0)
[2024-02-25 13:29] LABS: IgA 264 mg/dL (85-499); Interpretation (See Note); Tissue Transglutaminase IgA <4.0 CU (<20.0)
== END 2024-02-23 16:22 | disposition home or self-care (01) ==
LOC: LBN 16:21
PROVIDERS: PCP Nurse Practitioner Family; Visit Provider Nurse Practitioner Family
DX: D63.8 Anemia in other chronic diseases classified elsewhere (principal); M32.9 Systemic lupus erythematosus, unspecified
CPT/HCPCS: 82784; 83516; 85027; 82607; 82728; 82746; 83540; 83550

== ENCOUNTER 2024-04-22 02:19 | Outpatient (CLI) | payer MEDICAID, SELFPAY ==
[2024-04-22 10:59] LABS: Anion Gap 9.9 mmol/L (3-11); CO2 25.1 mmol/L (21.0-32.0); Chloride 106 mmol/L (98-107); Potassium 4.1 mmol/L (3.5-5.1); Sodium 141 mmol/L (136-145)
[2024-04-22 11:21] LABS: HCG Qual (Serum) Negative
== END 2024-04-22 02:20 | disposition home or self-care (01) ==
LOC: LBO 02:19
PROVIDERS: PCP Nurse Practitioner Family; Visit Provider Obstetrics & Gynecology Gynecology
DX: Z01.818 Encounter for other preprocedural examination (principal)
CPT/HCPCS: 36415; 80051; 86850; 86900; 86901; 84703

== ENCOUNTER 2024-04-23 09:45 | Day surgery (SDC) | payer MEDICAID, SELFPAY ==
[2024-04-23 10:19] VITALS: BP 121/77; PULSE 80; RESP 16; TEMP 36.6; O2SAT 100
[2024-04-23] MEDS: Normal Saline 500 ML 30 ML IV (10:50)
--- NOTE | 2024-04-23 11:14 | W.ANESPRE ---
General Info Date of Service Date Performed: 04/23/24 Height: 5 ft 4.5 in Weight: 69.2 kg Body Mass Index (BMI): 25.7 Surgical Procedure: Operation Date: 04/23/24 11:10 Proposed Procedure Side Surgeon p [place] Thermal Endometrial Ablation Clara Blanchard MD Meds Allergies and Home Medications Allergies Allergy/AdvReac Type Severity Reaction Status Date / Time gluten Allergy Other (See Verified 04/23/24 10:12 Comment) ibuprofen AdvReac Intermediate Nausea Verified 04/23/24 10:12 Clear Adhesive Bandage AdvReac Intermediate Itchy skin Uncoded 04/23/24 10:12 - rash - feels like a burn Home Medication ?Medication ?Instructions ?Recorded hydroxychloroquine 200 mg tablet 200 mg PO DAILY 08/04/16 (Plaquenil) cholecalciferol (vitamin D3) 10 10 mcg PO DAILY 09/13/22 mcg (400 unit) capsule magnesium 250 mg tablet 250 mg PO DAILY 09/13/22 apple cider vinegar 300 mg tablet 200 mg PO DAILY 04/09/23 cranberry 400 mg capsule 400 mg PO DAILY 04/09/23 elderberry fruit 350 mg capsule 350 mg PO DAILY 04/09/23 ferrous sulfate 325 mg (65 mg 45 mg PO DAILY 04/09/23 iron) tablet (FeroSul) medroxyprogesterone 150 mg/mL 150 mg IM Q10W #1 mL 03/21/24 intramuscular syringe (Depo-Provera) lisdexamfetamine 60 mg capsule 60 mg PO DAILY #30 caps 04/14/24 Current Visit Medications: Current Medications Generic Name Dose Route Start Last Admin Trade Name Payton PRN Reason Stop Dose Admin Sodium Chloride 500 mls @ 30 mls/hr 04/23/24 10:00 04/23/24 10:50 Saline 500ml Bag IV 05/23/24 09:59 30 mls/hr INFUSION JERMAINE Administration IV Miscellaneous Supplies 1 each 04/23/24 06:00 Iv Access IV 04/23/24 23:59 DIRECTED JERMAINE Sodium Chloride 0 ml 04/23/24 06:00 Normal Saline Flush 10 Ml Syr IV 04/23/24 23:59 PRN PRN Sodium Chloride 0 ml 04/23/24 06:00 Normal Saline 10 Ml Vial IJ 04/23/24 23:59 DIRECTED PRN Sterile Water 0 ml 04/23/24 06:00 Water,Injection,Sterile 10 Ml Vial IJ 04/23/24 23:59 DIRECTED PRN PFSH Active Problems Active Problems: Problem Status Onset Code Pre-op exam Acute Z01.818 CTS (carpal tunnel syndrome) Acute G56.00 Depression with anxiety Acute F41.8 On Depo-Provera for contraception Chronic Z30.42 Anemia Chronic D64.9 ADHD Acute F90.9 Celiac disease Acute K90.0 Migraine with aura Chronic Systemic lupus erythematosus Chronic M32.9 Medical History Medical History Radial fracture Occipital lymphadenopathy Irregular bleeding Improved with POPs. Switched to depo 11/02/22 Acne improved on POPs Endometriosis determined by laparoscopy Lap BTL 09/08/21, +endo on path Pneumonia Spina bifida occulta Iron deficiency Panic disorder pt denies now, not an issue History of varicella 1994 Surgical History Surgical History H/O tubal ligation (~2021) History of laparoscopy 09/08/21: BTL and bx confirmed endometriosis (2 tiny spots on peritoneum) Hx of wisdom tooth extraction History of section (03/15/15) 2011 PCS for arrest 2015 [facility] Tonsillectomy and adenoidectomy pt. states she has not had her tonsils out Tobacco Smoking/Tobacco Use Status: Current every day Tobacco Type: cigarettes Passive smoking exposure: Yes Second hand exposure: Yes Alcohol Alcohol Intake: current Alcohol intake frequency: holidays/special occasions only Alcohol type: wine Details: 6 or more drinks monthly or less Substance Use Substance use: Never Substance use type: does not use Prental History History 2 Para 2 Hx # Term Pregnancies 2 Multiple births Hx # Pregnancies Ectopic pregnancies AB induced Hx Number of Living Children 2 AB spontaneous Past Pregnancies Del. Date GA/Weeks # Preg Succ Route Wgt Sex Labor Lgth Anesthesia Location Prov Complic 01/27/12 No 3203.496 g Male [facility] 05/31/15 No 3968.933 g Female [facility] Delivery Date: 01/27/12 Last Updated by: Preethi Deshpande M.D. PCS for arrest Delivery Date: 05/31/15 Last Updated by: Preethi Deshpande M.D. [facility] Vital Signs and Lab Results Vital Signs Most Recent Vital Signs in EMR: Most Recent Vital Signs Temp Pulse Resp BP Pulse Ox 36.6 C 80 16 121/77 100 04/23/24 10:19 04/23/24 10:19 04/23/24 10:19 04/23/24 10:19 04/23/24 10:19 Lab Results Blood Type / Crossmatch: Antibody Screen NEGATIVE 04/22/24 Complete Blood Count: No Data to Display Complete Metabolic Panel: Sodium 141 mmol/L (136-145) 04/22/24 10:30 Potassium 4.1 mmol/L (3.5-5.1) 04/22/24 10:30 Chloride 106 mmol/L (98-107) 04/22/24 10:30 Carbon Dioxide 25.1 mmol/L (21.0-32.0) 04/22/24 10:30 Liver Function Panel: No Data to Display Coagulation Panel: No Data to Display Cardiac Panel: No Data to Display Arterial Blood Gas: No Data to Display Venous Blood Gas: No Data to Display Pancreas Panel: No Data to Display Thyroid Panel: No Data to Display Infectious Disease: No Data to Display Blood Cultures: No Data to Display Toxicology Panel: No Data to Display Panel: Serum HCG, Qualitative Negative 04/22/24 10:30 Imaging and Studies Imaging and Studies Study information below may be from another EMR and interpreted by another provider. Please see original notes in EMR for more complete details. Echocardiogram Summary: Conclusion The Left Ventricular Ejection Fraction is 60-65%, without wall motion abnormalities The left ventricular diastolic function is normal. The right ventricle shows normal size and function. Both atria are normal size The aortic valve is normal in structure without stenosis. The mitral valve is normal in structure with trace regurgitation The tricuspid valve is normal in structure with mild regurgitation The aortic root is normal in size. There is no pericardial effusion. This represents a normal echocardiogram Anesthesia Assessment and Plan Anesthesia History Personal History: No History of Anesthesia Complications Family History: No Family History of Anesthesia Complications Exercise Tolerance Exercise Tolerance: Metabolic Equivalents>4 Pertinent Negatives Pertinent Negatives: No Symptoms of GERD, No Major Cardiovascular Symptoms or Complaints and No History of CVA/TIA Cardiac & Pulmonary Exam Cardiac Exam: Normal S1/S2 Heart Sounds Pulmonary Exam: Clear Bilateral Breath Sounds Implantable Cardiac Device Does patient have a Pacemaker or an ICD?: No Airway Exam Known Difficult Airway: No Mallampati Class: 1 Mouth Opening: Normal (> 3cm) Thyromental Distance: Greater than 3 cm Neck Range of Motion: Full ROM Neck Circumference: Normal Teeth Condition: Normal Dentition ASA Classification ASA Score: ASA 2 Emergency Case?: No NPO Status NPO Status: NPO Clears >2 hours, Solids >8 hours Status Status: Negative HCG Anesthesia Plan Resuscitation Status: Full Code Anesthesia Technique: General Anesthesia Airway Planned: Natural Airway Monitors Used: Standard Monitors Preoperative Comments:: Natural airway with backup LMA if indicated
[2024-04-23 11:18] VITALS: BMI 25.7
[2024-04-23] MEDS: Bupivacaine 0.25% Pres-Free 30 ML VIAL (12:08)
[2024-04-23 12:23] VITALS: BP 96/73; PULSE 70; RESP 15; TEMP 36.3; O2SAT 100
--- NOTE | 2024-04-23 12:26 | W.ANESPOSTOP ---
Postoperative Evaluation Date, Time and Location Date Performed: 04/23/24 Time Performed: 12:23 Patient Location: Day Surgery Unit Vital Signs Most Recent Imported Vital Signs: Most Recent Vital Signs Temp Pulse Resp BP Pulse Ox 36.3 C L 70 15 96/73 L 100 04/23/24 12:23 04/23/24 12:23 04/23/24 12:23 04/23/24 12:23 04/23/24 12:23 Temp Pulse Resp BP Pulse Ox 36.6 C 80 16 121/77 100 04/23/24 10:19 04/23/24 10:19 04/23/24 10:19 04/23/24 10:19 04/23/24 10:19 Pain Score Most Recent Pain Score: Most Recent Pain Score Pain Level 0 04/23/24 10:19 Assessment Mental Status: Awake (Alert & Oriented to Patient Baseline) Airway and Respiratory Function: Patent airway with normal (patient baseline) respiratory exam Cardiovascular Function: Hemodynamically Stable Hydration Status: Adequately Hydrated Nausea & Vomiting: No Nausea or Vomiting Pain: Pt. Denies Any Pain Peripheral Nerve Block: Patient did not receive a nerve block
[2024-04-23 13:01] VITALS: BP 111/75; PULSE 75; RESP 16; TEMP 36.6; O2SAT 99
--- NOTE | 2024-04-23 13:11 | W.PM.DSUDISC ---
Date of service: 04/23/24 Discharge Plan Disposition Patient Disposition: Home Discharge Details Reason For Visit: hydrothermal endometrial ablation. Attending Provider: Clara Blanchard Primary Care Provider: Bari Aburto Home Meds and New Rx's Prescriptions: No Action cholecalciferol (vitamin D3) 10 mcg (400 unit) capsule 10 mcg PO DAILY Patient Comments: 09/13/22- unsure of dose magnesium 250 mg tablet 250 mg PO DAILY oxycodone-acetaminophen [Percocet] 5-325 mg tablet 1 tab PO Q6H MDD 4 PRN (Reason: pain) Qty: 7 0RF ferrous sulfate [FeroSul] 325 mg (65 mg iron) tablet 45 mg PO DAILY elderberry fruit 350 mg capsule 350 mg PO DAILY apple cider vinegar 300 mg tablet 200 mg PO DAILY cranberry 400 mg capsule 400 mg PO DAILY Rx Instructions: administer with a meal hydroxychloroquine [Plaquenil] 200 MG tablet 200 mg PO DAILY medroxyprogesterone [Depo-Provera] 150 mg/mL syringe 150 mg IM Q10W Qty: 1 6RF lisdexamfetamine 60 mg capsule 60 mg PO DAILY MDD 60 mg Qty: 30 0RF Discharge Instructions Additional Instructions: Percocet for pain not relieved with Acetaminophen, You will have watery discharge for the next 4 weeks. Call with fever over 100.5 or pain not relieved by Percocet or Acetaminophen.Pam pads for the first two weeks. No intercourse until all of the discharge has stopped. Stand Alone Forms: Anesthesia Discharge Inst., DSU Post [facility] Surg W/O Incision Referrals: Clara Blanchard MD [ [facility] STAFF PHYSICIAN] - 05/15/24 10:00 am Activity:: Activity as Tolerated Shower/Bathe:: 24 hours Diet:: As Tolerated Discharge Orders Discharge Orders: Discharge Order (Routine); Ordered 04/23/24 Ordered By: Clara Blanchard DS: Diagnosis Discharge Diagnosis (1) Abnormal uterine bleeding (AUB): Status: Acute (2) History of endometrial ablation: Status: Acute
[2024-04-23] MEDS: oxyCODONE 5 mg/Acetaminophen 325 mg TAB PO (13:21)
[2024-04-23 13:40] VITALS: BP 115/75; PULSE 77
--- NOTE | 2024-04-23 13:58 | ROE_ITS ---
Operative Note Operative Note PRE-OP DIAGNOSIS: abnormal uterine bleeding POST-OP DIAGNOSIS: same PROCEDURE: Hydrothermal endometrial ablation SURGEON: Clara Blanchard ANESTHESIA TYPE: General:No Airway Refer to Anesthesia Record ESTIMATED BLOOD LOSS: 3 PATHOLOGY: none sent COMPLICATIONS: None Patient was transported to: same day Patient's condition: stable Indications: Pt is a 33yo female with a history of abnormal uterine bleeding Pt had requested an alternative to her current q3mo DepoProvera regime. She started the Depoprovera 10/2022 to treat irregular menses. Pt wants to avoid menses completely and requested a endomtrial ablation. 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 Findings: Normal endometrial lining. No intracavity filling defects. Excellent treatment effect Procedure Description: Patient was taken to the operating room where she was placed in the dorsal supine position and general anesthesia was administered without difficulty. She was then placed in the dorsolithotomy position in yellowfin stirrups and prepped and draped in the usual sterile fashion. SCDs were in place. No antibiotics were required. After a surgical timeout was performed a bivalve speculum was placed in the patient's vagina. The anterior lip of the cervix was infiltrated with 1 cc 0.25% bupivacaine and a single-tooth tenaculum was used to grasp the anterior lip of the cervix. A paracervical block was performed with infiltration of 5 cc of 0.25% bupivacaine at the 4 o'clock and 8 o'clock paracervical spaces respectively. Cervix was then sequentially dilated to a maximum of 19 Camara. A hysteroscope sheath was inserted into the uterine cavity and a cavity assessment was performed with the above noted findings. The tip of the hysteroscope sheath was positioned to allow visualization of the uterine fundus, both tubal ostia in the midportion of the uterine cavity. The sheath was protected from the vaginal bradford by the speculum. Heated isotonic saline was then administered via gravity into the uterus through the sheath. Once a safety assessment was performed the treatment phase of the procedure began and under direct observation the uterine cavity was treated with heated isotonic saline at 90 ?C for 10 minutes. Intrauterine cool-down phase was performed for 1 minute. The uterine cavity was carefully assessed with hysteroscopy and the uterus was noted to have a satisfactory treatment effect and the integrity of the uterine cavity was confirmed. After these findings the hysteroscope was removed as were the instruments removed from the vagina. Tenaculum site was bleeding at the 12 o'clock position and was made hemostatic with an interupted suture of 2-0 Vicryl.The patient was placed in the dorsal supine position successfully awakened from anesthesia and transported to day surgery unit in stable condition. All sponge lap needle counts correct x2 Date of Procedure: 04/23/24
== END 2024-04-23 13:45 | disposition home or self-care (01) ==
PROVIDERS: PCP Nurse Practitioner Family; Visit Provider Obstetrics & Gynecology Gynecology
PROC: (CPT 58353; principal; 2024-04-23 11:00)
DX: N93.9 Abnormal uterine and vaginal bleeding, unspecified (principal); D64.9 Anemia, unspecified; K90.0 Celiac disease
CPT/HCPCS: 58563; J0665; J1100; J2003; J2250; J2405; J3010

== ENCOUNTER 2025-02-13 11:14 | Outpatient (CLI) | payer MEDICAID, SELFPAY ==
[2025-02-13 16:11] LABS: Abs Immature Grans 0.02 10^3/uL (0.0-0.06); HCT 39.0 % (36.0-46.0); HGB 13.0 g/dL (11.2-15.7); Immature Grans % 0.3 %; MCH 31.9 pg (27.0-33.0); MCHC 33.3 % (32.0-36.0); MCV 96 fL (80-95); MPV 10.0 fL (8.0-11.0); Platelet Count 256 10^3/uL (130-400); RBC 4.08 10^6/uL (3.93-5.22); RDW 13.0 % (11.7-14.6); RDW-SD 46.1 fL; WBC 6.86 10^3/uL (4.4-10.8)
[2025-02-13 16:13] LABS: ESR 1 mm/hr (0-20)
[2025-02-13 16:27] LABS: ALT 32 U/L (14-59); AST 26 U/L (15-37); Albumin 4.2 g/dL (3.4-5.0); Alkaline Phosphatase 69 U/L (46-116); Anion Gap 8.3 mmol/L (3-11); BUN 9 mg/dL (7-18); Bilirubin, Total 0.3 mg/dL (0.2-1.0); CO2 27.7 mmol/L (21.0-32.0); Calcium 9.2 mg/dL (8.5-10.1); Chloride 103 mmol/L (98-107); Estimated GFR 117.77 (mL/min/1.73m2); Glucose 98 mg/dL (74-106); Potassium 3.9 mmol/L (3.5-5.1); Sodium 139 mmol/L (136-145); TSH (W/Ref FT4) 1.08 uIU/mL (0.36-3.74); Total Protein 7.2 g/dL (6.4-8.2)
[2025-02-13 16:30] LABS: C-Reactive Protein < 0.50 mg/dL (<or=0.5)
[2025-02-15 21:00] LABS: B. miyamotoi PCR Negative (Negative); Babesia divergens/MO-1 Negative (Negative); Ehrlichia muris eauclairensis Negative (Negative)
[2025-02-16 09:21] LABS: Lyme Ab w Rflx to Lyme Confirm Negative (Negative)
[2025-02-16 10:41] LABS: VCA IgG Positive (Negative); VCA IgM Negative (Negative)
== END 2025-02-13 11:15 | disposition home or self-care (01) ==
PROVIDERS: PCP Nurse Practitioner Family; Visit Provider Nurse Practitioner Family
DX: R59.1 Generalized enlarged lymph nodes (principal)
CPT/HCPCS: 36415; 80053; 85652; 87798; 84443; 85025; 86140; 86618; 86664; 86665

== ENCOUNTER 2025-02-23 03:40 | Outpatient (CLI) | payer MEDICAID, SELFPAY ==
[2025-02-23 15:13] LABS: LDH 198 U/L (81-234)
== END 2025-02-23 03:41 | disposition home or self-care (01) ==
PROVIDERS: PCP Nurse Practitioner Family; Visit Provider Nurse Practitioner Family
DX: R59.1 Generalized enlarged lymph nodes (principal); R61 Generalized hyperhidrosis
CPT/HCPCS: 36415; 83615

== ENCOUNTER 2025-02-27 04:54 | Outpatient (CLI) | payer MEDICAID, SELFPAY ==
--- NOTE | 2025-02-27 06:10 | DI.CT_ITS ---
Exam(s) CT NECK W EXAM: CT NECK W CLINICAL HISTORY: persistent lymphadenopathy, posterior,night sweats,r59.1,r61. TECHNIQUE: Imaging Protocol: Axial computed tomography images with coronal and sagittal reformatted images were created and reviewed CONTRAST MATERIAL: Intravenous: Omnipaque 350 Contrast volume:100 ml contrast COMPARISON: No exams were available for comparison FINDINGS: Parotids: Normal. Submandibular glands: Normal. Thyroid gland: Normal. Lymph nodes: There are scattered lymph nodes seen along the level one to level three all measuring less than 8 mm in short axis diameter which are physiologic in nature. Carotids arteries: No significant stenosis or dissection. Vertebral arteries: No significant stenosis or dissection. Soft tissues: The floor the mouth is unremarkable. The tonsils and adenoids are unremarkable. The epiglottis and vocal cords are within normal limits. Lungs: Images through both lung apices are unremarkable. Bones: No evidence of fracture, lytic or blastic lesions. Visualized portions of the brain and orbits: Unremarkable. Sinuses and mastoids: Clear. IMPRESSION: Normal CT scan of the neck. No evidence of adenopathy. RADIATION DOSE DELIVERED: 269.21mGy.cm Total DLP DATA REPOSITORY: All CT scans at this facility are submitted to the National Radiology Data Registry (NRDR) Dose Index Registry (DIR) with the [employer] (A[employer]). RADIATION OPTIMIZATION: All CT scans at this facility use at least one of these dose optimization techniques: automated exposure control; mA and/or kV adjustment per patient size (includes targeted exams where dose is matched to clinical indication); or iterative reconstruction.
[2025-02-27] MEDS: Normal Saline Flush 10 ML SYR IVP (08:36)
[2025-02-27] MEDS: Normal Saline - Diluent 50 ML VIAL IJ (08:36)
[2025-02-27] MEDS: Omnipaque 350 MG/ML 500 ML BTL-Imaging package IJ (08:37)
== END 2025-02-27 05:14 ==
PROVIDERS: PCP Nurse Practitioner Family; Visit Provider Nurse Practitioner Family
DX: R59.1 Generalized enlarged lymph nodes (principal); R61 Generalized hyperhidrosis
CPT/HCPCS: 70491

== ENCOUNTER 2025-03-06 03:28 | Outpatient (CLI) | payer MEDICAID, SELFPAY ==
[2025-03-06 15:34] LABS: Abs Immature Grans 0.02 10^3/uL (0.0-0.06); HCT 40.5 % (36.0-46.0); HGB 13.4 g/dL (11.2-15.7); Immature Grans % 0.3 %; MCH 31.7 pg (27.0-33.0); MCHC 33.1 % (32.0-36.0); MCV 96 fL (80-95); MPV 9.3 fL (8.0-11.0); Platelet Count 299 10^3/uL (130-400); RBC 4.23 10^6/uL (3.93-5.22); RDW 13.5 % (11.7-14.6); RDW-SD 47.8 fL; WBC 7.61 10^3/uL (4.4-10.8)
[2025-03-06 15:36] LABS: Glucose Negative (Negative)
[2025-03-06 15:41] LABS: C & S Indicated? No; RBC 0-2 HPF (0-2); WBC 0-2 HPF (0-5)
[2025-03-06 16:33] LABS: ALT 83 U/L (14-59); AST 136 U/L (15-37); Albumin 4.7 g/dL (3.4-5.0); Alkaline Phosphatase 80 U/L (46-116); Anion Gap 10.2 mmol/L (3-11); BUN 10 mg/dL (7-18); Bilirubin, Total 0.3 mg/dL (0.2-1.0); C-Reactive Protein < 0.50 mg/dL (<or=0.5); CO2 27.8 mmol/L (21.0-32.0); Calcium 9.5 mg/dL (8.5-10.1); Chloride 102 mmol/L (98-107); Estimated GFR 117.77 (mL/min/1.73m2); Glucose 85 mg/dL (74-106); Potassium 3.6 mmol/L (3.5-5.1); Sodium 140 mmol/L (136-145); TSH (W/Ref FT4) 2.51 uIU/mL (0.36-3.74); Total Protein 8.5 g/dL (6.4-8.2)
[2025-03-06 17:18] LABS: Lab Add On Test DONE
[2025-03-07 09:25] LABS: HIV-1/2 Ag & Ab Screen Negative (Negative)
== END 2025-03-06 03:29 | disposition home or self-care (01) ==
LOC: LBO 03:28
PROVIDERS: PCP Nurse Practitioner Family; Visit Provider Nurse Practitioner Family
DX: R61 Generalized hyperhidrosis (principal)
CPT/HCPCS: 36415; 80053; 87040; 87077; 87389; 81003; 81015; 83010; 84443; 85025; 86140; 87086; 87186

== ENCOUNTER 2025-03-08 15:33 | Outpatient (REF) | payer MEDICAID, SELFPAY ==
[2025-03-08 16:31] LABS: Creatinine,Urine 28.17 mg/dL; Sodium, Urine 27 mmol/L
[2025-03-08 16:38] LABS: Creatinine,24hr Ur 0.76 g/24hr (0.60-1.80); Total Volume 2700 ml
[2025-03-10 09:10] LABS: Calcium Urine 2.2 mg/dL (See Note); Timed Urine Volume 2700 mL
[2025-03-10 09:12] LABS: Timed Urine Volume 2700 mL
[2025-03-11 10:01] LABS: Citrate Excretion, 24hr, U 1072 mg/24 h (235 - 1191)
[2025-03-11 15:25] LABS: Oxalate, U 0.27 mmol/24 h; Oxalate, U 23.8 mg/24 h (9.7 - 40.5)
[2025-03-12 12:00] LABS: Timed Urine Volume 2700 mL
== END 2025-03-08 15:34 | disposition home or self-care (01) ==
LOC: LBN 15:33
PROVIDERS: PCP Nurse Practitioner Family; Visit Provider Nurse Practitioner Family
DX: N20.0 Calculus of kidney (principal)
CPT/HCPCS: 82507; 83735; 81050; 82340; 82570; 83945; 84300; 84560

== ENCOUNTER → 2025-03-13 03:39 | Outpatient (CLI) | payer MEDICAID, SELFPAY ==
--- NOTE | 2025-03-13 06:45 | DI.CT_ITS ---
Exam(s) CT CHEST/ABD/PEL W EXAM: CT CHEST/ABD/PEL W CLINICAL HISTORY: persistent night sweats,r61 TECHNIQUE: Imaging Protocol: Axial computed tomography images with coronal and sagittal reformatted images were created and reviewed. Lung Computer Aided Detection (CAD) was utilized. CONTRAST MATERIAL: Intravenous: Omnipaque 350 contrast volume:75 mL Oral: Yes COMPARISON: CT ABD PELVIS WITH CONTRAST from 08/15/2014 CT ABD PELVIS WITH CONTRAST from 05/18/[address] NECK W from 02/27/2025 FINDINGS: The examination is limited due to patient motion artifact. CHEST: Tracheobronchial tree: Patent where visualized. No evidence of bronchiectasis. Pulmonary parenchyma: No consolidation or dominant measurable mass. No architectural distortion. Visualized thyroid gland: Unremarkable. Mediastinum and Cindy: No dominant adenopathy or fluid collection. The esophagus is unremarkable. There is soft tissue in the anterior mediastinum most likely reflecting residual thymic tissue. Pleura: No effusion or pneumothorax. Heart: The heart is not dilated. No coronary artery calcifications are seen. No pericardial effusion. Pulmonary arteries: Due to the timing of the bolus, there is suboptimal opacification of the pulmonary arteries for evaluation of pulmonary emboli. Aorta: Thoracic aorta non-dilated. Lymph nodes: Within normal limits. Soft tissues: Unremarkable. Bones:Within normal limits for the patient's age. ABDOMEN: Liver: Normal density. No measurable mass. Portal, Superior Mesenteric, and Splenic Veins: Unremarkable. Gallbladder and Biliary Tract: No radiodense calculus or dilation. Pancreas: Normal density, no abnormal calcifications or inflammatory process. Spleen: Normal. Adrenals: No masses seen. Kidneys: Normal size, contour and axis. No radiodense stones or obstructive uropathy. No masses seen. Abdominal Aorta: Abdominal portion non-dilated. Bowel: No obstruction or bowel wall thickening. Appendix is unremarkable. Peritoneal Cavity: No ascites, collection or mesenteric inflammatory response. No free air. Lymph Nodes: Within normal limits. Bones: Within normal limits for the patient's age. Soft Tissues: Unremarkable. PELVIS: Bladder: Symmetric distention, no gross wall thickening. Reproductive Organs: There is a 2.3 cm right ovarian cyst which is likely physiologic. Lymph Nodes: Within normal limits. Bones: Within normal limits. IMPRESSION: 1. Unremarkable CT scan of the abdomen and pelvis. 2. Unremarkable CT scan of the chest. RADIATION DOSE DELIVERED: 355.56mGy.cm Total DLP DATA REPOSITORY: All CT scans at this facility are submitted to the National Radiology Data Registry (NRDR) Dose Index Registry (DIR) with the [employer] (ACR). RADIATION OPTIMIZATION: All CT scans at this facility use at least one of these dose optimization techniques: automated exposure control; mA and/or kV adjustment per patient size (includes targeted exams where dose is matched to clinical indication); or iterative reconstruction.
[2025-03-13] MEDS: Barium Sulfate 2% W/V-Creamy Vanilla Smoothie 450 ML BTL PO ×2 (07:36→07:37)
[2025-03-13] MEDS: Normal Saline - Diluent 50 ML VIAL IJ (09:06)
[2025-03-13] MEDS: Normal Saline Flush 10 ML SYR IVP (09:06)
[2025-03-13] MEDS: Omnipaque 350 MG/ML 100 ML BTL IJ (09:06)
== END ==
PROVIDERS: PCP Nurse Practitioner Family; Visit Provider Nurse Practitioner Family
DX: R61 Generalized hyperhidrosis (principal); R59.1 Generalized enlarged lymph nodes
CPT/HCPCS: 74177; 71260; J3490

== ENCOUNTER 2025-03-20 02:57 | Outpatient (CLI) | payer BC, SELFPAY ==
[2025-03-20 10:15] LABS: Creatine Kinase 182 U/L (26-192)
[2025-04-21 09:00] LABS: Anti-Jo-1 Ab <20 Units (<20)
[2025-04-21 09:02] LABS: Anti-MDA-5 Ab (CADM-140) <20 Units (<20); Anti-NXP-2 (P140) Ab <20 Units (<20); Anti-PM/Scl-100 Ab <20 Units (<20); Anti-TIF-1gamma Ab <20 Units (<20)
[2025-04-21 09:03] LABS: Anti-Ku Ab Negative (Negative); Anti-SS-A 52kD Ab, IgG <20 Units (<20); Anti-U2 RNP Ab Negative (Negative)
[2025-04-21 09:05] LABS: Anti-U3 RNP (Fibrillarin) Negative (Negative)
== END 2025-03-20 02:58 | disposition home or self-care (01) ==
PROVIDERS: PCP Nurse Practitioner Family; Visit Provider Nurse Practitioner Family
DX: M62.81 Muscle weakness (generalized) (principal); L29.9 Pruritus, unspecified; R61 Generalized hyperhidrosis; M25.50 Pain in unspecified joint
CPT/HCPCS: 36415; 82164; 82550; 83516; 86235